=== PATIENT | female | born 1935 | race Caucasian/White ===

== ENCOUNTER → 2019-02-26 | Outpatient (CLI) | payer MEDICARE, OTHER ==
--- NOTE | 2019-02-27 08:53 | XCELERA REPORT ---
[address] [facility] [facility] [address] Lower Extremity Venous Evaluation Procedure: Color flow and duplex imaging of the veins of the left lower extremity as well as the right Common Femoral vein. Right Sided Venous Evaluation The right common femoral vein is fully compressible. Spontaneous and phasic flow is present in the right common femoral vein. Left Sided Venous Evaluation Normal vessel filling wall to wall, compression and augmentation as well as Colour flow down to the infrageniculate veins. Interpretation Summary No duplex evidence of DVT or obstruction in the left lower extremity nor in the right Common Femoral vein. Name: BRET GORDILLO Age: 83 yrs Gender: Female : 1935 Patient Status: Outpatient Patient Location: Study Date: 02/26/2019 04:13 PM Reason For Study: LLE PAIN Ordering Physician: SID BURGESS Performed By: Claire Hernandez : SID BURGESS > Kamar De La Cruz
== END ==
LOC: SP 15:43
PROVIDERS: ATTEND Family Medicine
DX: R60.0 Localized edema (principal)
CPT/HCPCS: 93971

== ENCOUNTER 2019-05-16 14:56 | Emergency (ER) | payer MEDICARE ==
[2019-05-16] MEDS ORDERED: ONDANSETRON HCL INJ/PF 4 MG/2 ML SDV IV ONE (15:21)
--- NOTE | 2019-05-16 15:44 | ER Document Report ---
ED GI/ - General Stated Complaint: ABDOMINAL PAIN Time Seen by Provider: 05/16/19 15:04 Primary Care Provider: SID BURGESS MD [Primary Care Provider] - Follow up in 3-5 days Notes: Patient is an 83-year-old female who presents emergency department with a chief complaint of abdominal pain and chest pain. She is currently a resident [facility]. For the past few days she has had some diarrhea. She states that her abdominal pain is mainly in her lower abdomen. Patient has a history of an open paraesophageal hernia repair and gastropexy that was done on May 02. She had fallen on April 13 and sustained some sternal fractures. She was at [facility] all of this. Just released this past Tuesday. Patient states that she has had trouble sleeping and she has not been eating well because she does not like the food at [facility]. She is still on a pured diet but the facility decreased her diet to a liquid diet. Her son is at bedside and also reports the patient had a urinary tract infection at that time. Past medical history includes hypertension, type 2 diabetes, atrial fibrillation, arthritis, and osteoporosis. Patient states that she has had some nausea and diarrhea. TRAVEL OUTSIDE OF THE [place] IN LAST 30 DAYS: No - Related Data Allergies/Adverse Reactions: Sulfa (Sulfonamide Antibiotics) Allergy (Verified 11/14/11 10:28) Past Medical History - General Information source: Patient, Relative - Social History Smoking Status: Never Smoker Family History: Reviewed & Not Pertinent - Past Medical History Cardiac Medical History: Reports: Hx Hypercholesterolemia, Hx Hypertension Past Surgical History: Reports: Hx Tubal Ligation Review of Systems - Review of Systems Notes: REVIEW OF SYSTEMS: CONSTITUTIONAL : Denies recent illness. Denies recent unintentional weight loss. Denies fever, chills, or sweats. EENT: Denies eye, ear, throat, or mouth pain, discharge, or symptoms. Denies nasal or sinus congestion. CARDIOVASCULAR: See HPI. RESPIRATORY: Denies shortness of breath, cough, congestion, difficulty breathing, or wheezing. GASTROINTESTINAL: See HPI. GENITOURINARY: Denies difficulty urinating, burning, blood in urine, urgency or frequency. MUSCULOSKELETAL: Denies neck and back pain. Denies joint pain or swelling. SKIN: Denies rash, itchiness, or lesions HEMATOLOGIC : Denies easy bruising or bleeding. LYMPHATIC: Denies swollen, painful, enlarged glands. NEUROLOGICAL: Denies no numbness or tingling denies weakness. Denies headache. Denies altered mental status. Denies alteration in speech. PSYCHIATRIC: Denies stress, anxiety, alteration in sleep patterns, or depression. All other systems reviewed and negative. Physical Exam - Vital signs Vitals: Resp Pulse Ox 22 H 94 05/16/19 15:05 05/16/19 15:05 - Notes Notes: PHYSICAL EXAMINATION: GENERAL: Appears stated age, no acute distress. HEAD: Normocephalic, atraumatic. EYES: PERRL, conjunctiva normal, all extraocular movements intact, sclera nonicteric ENT: Dry mucous membranes. NECK: Supple, no noticeable swelling, redness, rash. Normal range of motion. LUNGS: Equal breath sounds bilaterally and clear to auscultation. No wheezes rales or rhonchi. CARDIOVASCULAR: S1-S2, regular rate, regular rhythm. Radial pulses 2+, normal. ABDOMEN: Normoactive bowel sounds. Soft, mildly tender mid lower abdomen, no guarding, no rebound tenderness, and no masses palpated. EXTREMITIES: Normal strength for self (patient bed bound) and range of motion, 1+ edema. No cyanosis. NEUROLOGICAL: Moves all extremities upon command. Strength 5/5 in all extremities. PSYCH: Normal mood, normal affect. SKIN: Warm, dry. No rash, lesions, ulcerations noted. Normal skin turgor. Course - Re-evaluation Re-evalutation: 05/16/19 16:52 Patient's potassium is 6.0 with a sodium of 117. I discussed this with Dr. Macy Oviedo and patient will be started on IV fluids and labs will be redrawn. Hematology shows white blood cell count of 10.6. Awaiting urinalysis. Accord ing to the nurse, the patient keeps attempting her bladder and does not have time to refill when she caths her. 05/16/19 19:45 Patient's urinalysis is unremarkable. No urinary tract infection noted. CT results show esophagitis, which is consistent with her not being on a PPI at this time. CT also shows pleural effusions. I have called [facility] to relay the CT results to the thoracic surgeon. Awaiting callback. 05/16/19 20:15 I spoke with thoracic surgery from [facility]. I relayed the CT results to him and he is recommending Pepcid and Carafate for the patient. I also discussed lab results. He also states that from a surgical standpoint, there is nothing for him to do at this time. He is offering the patient to be [facility] under the hospitalist service. I will speak with the family in regards to this issue. 05/16/19 20:45 Patient redraw of her chemistries hemolyzed. I have a very low suspicion of the patient being hyperkalemic due to her diarrhea. Her potassium should actually be lower than 6.0 due to her diarrhea. I had a very lengthy conversation with the patient and her son. They have a few requests. They would like her to be reevaluated by speech therapy to evaluate her swallowing and see if they can advance her diet. I put this requested on her discharge paperwork. I also asked whether or not they would like to be transferred to [facility] and they have decided to give rehab a try. They are also requesting something for her to sleep and for them to be able to bring her food that complies with her current diet, as the patient does not like the food at [facility]. I did that paperwork. Follow-up precautions were given. Verbal discharge instructions were given to the patient. They verbalized understanding. They are stable for discharge. - Vital Signs Vital signs: Temp Pulse Resp BP Pulse Ox 97.6 F 18 130/72 H 100 05/16/19 19:01 05/16/19 19:01 05/16/19 19:01 05/16/19 19:01 - Laboratory Result Diagrams: 05/16/19 15:14 05/16/19 15:14 Laboratory results interpreted by me: 05/16/19 05/16/19 05/16/19 15:14 15:14 18:53 WBC 10.6 H Hct 35.9 L RDW 14.2 H Plt Count 547 H Seg Neuts % (Manual) 84 H Lymphocytes % (Manual) 4 L Metamyelocytes % 1 H Abs Neuts (Manual) 9.0 H Abs Lymphs (Manual) 0.4 L Sodium 117.6 L* Potassium 6.0 H* Chloride 82 L Creatinine 0.39 L AST 55 H Creatine Kinase 22 L Urine Ketones 20 H Discharge - Discharge Clinical Impression: Diarrhea Qualifiers: Diarrhea type: unspecified type Qualified Code(s): R19.7 - Diarrhea, unspecified Abdominal pain Qualifiers: Abdominal location: lower abdomen, unspecified Qualified Code(s): R10.30 - Lowe r abdominal pain, unspecified Condition: Stable Disposition: HOME-SNF (ED ONLY) Additional Instructions: You were seen today in the emergency department for abdominal pain, chest pain, and diarrhea. Your abdominal pain is most likely due to your diarrhea. Your chest pain may be due to esophagitis. You are being started on Pepcid and Carafate. Please have them administer this as directed. You are also being sent home with Happy Hiney cream, a medication to place on buttocks between diaper changes. Your please follow-up with your primary care provider in regards to this visit. PROVIDER, PLEASE REFER PATIENT TO SPEECH THERAPY FOR SWALLOW EVALUATION TO ADVANCE DIET STAFF, PLEASE ALLOW FAMILY TO BRING IN OUTSIDE SOFT FOODS THAT COMPLY WITH HER CURRENT DIET Prescriptions: Melatonin 10 mg PO QHS #30 tab.rapdis Sucralfate [Carafate] 1 gm PO ACHS #120 oral.susp Miscellaneous Medication [Happy Hiney Cream] 1 applic TOP ASDIR PRN #30 gm PRN Reason: Famotidine [Pepcid 20 mg Tablet] 40 mg PO BID #120 tablet Referrals: SID BURGESS MD [Primary Care Provider] - Follow up in 3-5 days
[2019-05-16 16:33] LABS: ALBUMIN 3.7 g/dL (3.5-5.0); ALKALINE PHOSPHATASE 100 U/L (38-126); ANION GAP 10 (5-19); ASPARTATE AMINO TRANSFERASE 55 U/L (14-36); BILIRUBIN,DIRECT 0.3 mg/dL (0.0-0.4); BILIRUBIN,TOTAL 0.7 mg/dL (0.2-1.3); BLOOD UREA NITROGEN 9 mg/dL (7-20); CALCIUM 9.5 mg/dL (8.4-10.2); CARBON DIOXIDE 26 mmol/L (22-30); CHLORIDE 82 mmol/L (98-107); CREATINE KINASE 22 U/L (30-135); GLUCOSE 110 mg/dL (75-110); HEMATOCRIT 35.9 % (36.0-47.0); HEMOGLOBIN 12.1 g/dL (12.0-15.5); MEAN CORPUSCULAR HEMOGLOBIN 31.3 pg (27.0-33.4); MEAN CORPUSCULAR HGB CONC 33.6 g/dL (32.0-36.0); MEAN CORPUSCULAR VOLUME 93 fl (80-97); PLATELET COUNT 547 10^3/uL (150-450); RED BLOOD COUNT 3.85 10^6/uL (3.72-5.28); RED CELL DISTRIBUTION WIDTH 14.2 % (11.5-14.0); TOTAL PROTEIN 7.2 g/dL (6.3-8.2); WHITE BLOOD COUNT 10.6 10^3/uL (4.0-10.5)
[2019-05-16 16:44] LABS: CREATINE KINASE MB 0.64 ng/mL (<4.55)
[2019-05-16 16:45] LABS: ABSOLUTE LYMPHOCYTES# (MANUAL) 0.4 10^3/uL (0.5-4.7); ABSOLUTE MONOCYTES # (MANUAL) 0.7 10^3/uL (0.1-1.4); BASOPHILS % (MANUAL) 0 % (0-2); EOSINOPHILS % (MANUAL) 4 % (0-6); LYMPHOCYTES % (MANUAL) 4 % (13-45); METAMYELOCYTES % (MANUAL) 1 % (0); MONOCYTES % (MANUAL) 7 % (3-13); SEGMENTED NEUTROPHILS % (MAN) 84 % (42-78); TOTAL CELLS COUNTED 100
[2019-05-16 16:46] LABS: TROPONIN I < 0.012 ng/mL
[2019-05-16 16:47] LABS: ANISOCYTOSIS SLIGHT; OVALOCYTES SLIGHT; PLATELET COMMENT ADEQUATE; POIKILOCYTOSIS SLIGHT; POLYCHROMASIA SLIGHT
[2019-05-16] MEDS ORDERED: NORMAL SALINE 1000 ML 1,000 ML IV ONE (16:49)
--- NOTE | 2019-05-16 17:54 | RADIOLOGY REPORT (SQ) ---
EXAM DESCRIPTION: CT CHEST WITH COMPLETED DATE/TIME: 05/16/2019 5:19 pm REASON FOR STUDY: chest/abd pain COMPARISON: None. TECHNIQUE: CT scan of the chest performed using helical scanning technique with dynamic intravenous contrast injection. Images reviewed with lung, soft tissue and bone windows. Reconstructed coronal and sagittal MPR and MIP images reviewed. All images stored on PACS. All CT scanners at this facility use dose modulation, iterative reconstruction, and/or weight based d osing when appropriate to reduce radiation dose to as low as reasonably achievable (ALARA). [facility]: Dose Right [facility]: CareDose [facility]: Dose Right [facility]: Teradose 4D [facility]: [employer] CONTRAST TYPE AND DOSE: Contrast/concentration: Isovue 350.00 mg/ml; Total Contrast Delivered: 88.9 ml; Total Saline Delivered: 22.0 ml RENAL FUNCTION: GFR > 60. RADIATION DOSE: CT Rad equipment meets quality standard of care and radiation dose reduction techniq ues were employed. CTDIvol: 16.8 - 20.6 mGy. DLP: 2060 mGy-cm. . LIMITATIONS: None. FINDINGS: LUNGS AND PLEURA: The trachea and main bronchi are patent. There are moderate bilateral p leural effusions associated with compressive atelectasis of the lower lobes ; there is no pleural nod ularity or enhancement. There is no alveolar consolidation or ground-glass opacification. HILAR AND MEDIASTINAL STRUCTURES: There is no enlarged mediastinal adenopathy. HEART AND VASCULAR STRUCTURES: There is a standard 3 vessel arch. The thoracic aorta is normal in ca liber. There is no thoracic aortic dissection. There is [id number] atherosclerotic calcificat ion of the coronary arteries; there is no pericardial effusion or cardiomegaly. HARDWARE: Surgical clips near the gastroesophageal junction. UPPER ABDOMEN: See separate report of the CT of the abdomen. THYROID AND OTHER SOFT TISSUES: No masses or adenopathy. BONES: Compression fracture deformities of the T2, T3, T5, T8 and T12 vertebral bodies; there is evid ence of prior vertebral augmentation at the T12 level. OTHER: Circumferential mural thickening of the distal thoracic esophagus. IMPRESSION: 1. Moderate bilateral pleural effusions associated with compressive atelectasis of the l ower lobes. 2. Age indeterminate chronic compression deformities of several thoracic vertebral bodies. 3. Circumferential mural thickening of the distal thoracic esophagus - the finding is nonspecific an d represent esophagitis. TECHNICAL DOCUMENTATION: JOB ID: [id number] Quality ID # [id number]: Final reports with documentation of one or more dose reduction techniques (e.g., Au tomated exposure control, adjustment of the mA and/or kV according to patient size, use of iterative reconstruction technique) 2010 [employer]- All Rights Reserved Reading location - IP/workstation name: [email or web address]
--- NOTE | 2019-05-16 18:03 | RADIOLOGY REPORT (SQ) ---
EXAM DESCRIPTION: CT ABD/PELVIS WITH IV ONLY COMPLETED DATE/TIME: 05/16/2019 5:19 pm REASON FOR STUDY: chest/abd pain COMPARISON: None. TECHNIQUE: CT scan of the abdomen and pelvis performed using helical scanning technique with dynamic intravenous contrast injection. No oral contrast. Images reviewed with lung, soft tissue, and bone windows. Reconstructed coronal and sagittal MPR images reviewed. Delayed images for evaluation of the urinary system also acquired. All images stored on PACS. All CT scanners at this facility use dose modulation, iterative reconstruction, and/or weight based d osing when appropriate to reduce radiation dose to as low as reasonably achievable (ALARA). [facility]: Dose Right [facility]: CareDose [facility]: Dose Right [facility]: Teradose 4D [facility]: [employer] CONTRAST TYPE AND DOSE: Refer to the CT Chest report. RENAL FUNCTION: GFR > 60. LIMITATIONS: None. FINDINGS: LOWER CHEST: See separate report of the CT of the chest. LIVER: The liver morphology is non cirrhotic. There is no hepatic mass. SPLEEN: The spleen is normal in size. PANCREAS: There is no abnormality of the pancreas. GALLBLADDER: No abnormality that is apparent on CT. ADRENAL GLANDS: No mass or focal asymmetry. RIGHT KIDNEY AND URETER: No solid masses. No calcifications. No hydronephrosis or hydroureter. LEFT KIDNEY AND URETER: No solid masses. No calcifications. No hydronephrosis or hydroureter. AORTA AND VESSELS: No aneurysm or dissection of the abdominal aorta. The abdominopelvic vasculature is patent. RETROPERITONEUM: No retroperitoneal adenopathy, mass or hemorrhage. BOWEL AND PERITONEAL CAVITY: Surgical clips near the gastroesophageal junction. There is no evidence of bowel obstruction, bowel wall thickening, or pericolonic/ perienteric inflammation. APPENDIX: Normal. PELVIS: Bilateral inguinal hernias that contain nonobstructed loops of bowel. The urinary bladder is distended. There is focal area of wall thickening at the left posterior-lateral aspect of the urina ry bladder that measures approximately 3.4 cm in craniocaudal diameter and 11 mm and AP diameter. Th e uterus is atrophic. There is no pelvic adenopathy or free fluid. ABDOMINAL WALL: As above. BONES: Chronic compression deformities of the L3 and L4 vertebral bodies. OTHER: No other finding. IMPRESSION: 1. Focal area of wall thickening at the left posterolateral aspect of the uterine bladde r - correlation with ultrasound is recommended to exclude a mass. 2. Distended urinary bladder - correlate with clinical findings to exclude bladder outlet obstructio n. TECHNICAL DOCUMENTATION: JOB ID: [id number] Quality ID # [id number]: Final reports with documentation of one or more dose reduction techniques (e.g., Au tomated exposure control, adjustment of the mA and/or kV according to patient size, use of iterative reconstruction technique) 2010 [employer]- All Rights Reserved Reading location - IP/workstation name: [email or web address]
[2019-05-16 19:07] LABS: AMORPHOUS SEDIMENT,URINE TRACE /HPF; APPEARANCE,URINE CLEAR; BILIRUBIN,URINE NEGATIVE (NEGATIVE); COLOR,URINE STRAW; GLUCOSE, URINE NEGATIVE (NEGATIVE); KETONES,URINE 20 mg/dL (NEGATIVE); LEUKOCYTE ESTERASE,URINE NEGATIVE (NEGATIVE); NITRITE,URINE NEGATIVE (NEGATIVE); PROTEIN,URINE NEGATIVE (NEGATIVE); URINE SPECIFIC GRAVITY 1.018; UROBILINOGEN,URINE NEGATIVE mg/dL (<2.0)
--- NOTE | 2019-05-16 19:53 | EKG REPORT ---
SEVERITY:- ABNORMAL ECG - SINUS RHYTHM ABNRM R PROG, CONSIDER ASMI OR LEAD PLACEMENT : Confirmed by: Eloisa Stoddard MD 16-May-2019 19:51:38
[2019-05-16] MEDS ORDERED: FAMOTIDINE 20 MG TABLET PO ONE (19:57)
[2019-05-16] MEDS ORDERED: MELATONIN 5 MG TABLET PO ONE (20:44)
[2019-05-17 03:04] VITALS: BP 125/74
--- NOTE | 2019-05-17 21:45 | EKG REPORT ---
SEVERITY:- NORMAL ECG - SINUS RHYTHM : Confirmed by: Eloisa Stoddard MD 17-May-2019 21:44:37
== END 2019-05-17 03:04 ==
LOC: ER 14:56
DX: R10.30 Lower abdominal pain, unspecified (principal); R19.7 Diarrhea, unspecified; K20.9 Esophagitis, unspecified; J90 Pleural effusion, not elsewhere classified; R07.9 Chest pain, unspecified; R11.0 Nausea; R60.9 Edema, unspecified; I10 Essential (primary) hypertension; E11.9 Type 2 diabetes mellitus without complications; Z98.890 Other specified postprocedural states; Z87.440 Personal history of urinary (tract) infections; Z88.2 Allergy status to sulfonamides; Z74.01 Bed confinement status
CPT/HCPCS: 93005; 36415; 82553; 82550; 83690; 85025; 80053; 81001; 84484; 71260; 74177; 93010; A9270 ×2; J2405; J7030; J3490

== ENCOUNTER 2019-05-20 12:44 | Inpatient (IN) | payer MEDICARE ==
[2019-05-20] MEDS ORDERED: ONDANSETRON HCL INJ/PF 4 MG/2 ML SDV IV ONE (13:27)
[2019-05-20] MEDS ORDERED: NORMAL SALINE 1000 ML 1,000 ML IV ONE (13:27)
--- NOTE | 2019-05-20 13:35 | ER Document Report ---
ED GI/ - General Chief Complaint: High Blood Pressure Stated Complaint: NAUSEA Time Seen by Provider: 05/20/19 13:05 Primary Care Provider: SID BURGESS MD [Primary Care Provider] - Follow up as needed TRAVEL OUTSIDE OF THE [place] IN LAST 30 DAYS: No - HPI Notes: 05/20/19 13:31 Patient is a 83-year-old female that presents to the emergency department for chief complaint of nausea. [facility] from [facility] She was discharged to [facility] from [facility] just over a week ago. Patient had a recent open paraesophageal hernia repair and gastropexy after sustaining a mechanical fall with sternal fractures. She is currently on a pured diet. Patient reports ongoing gagging and dry heaving. She also reports lower abdominal tenderness. Patient was seen here 4 days ago and states she has no new symptoms today but is not feeling any improvement. She denies difficulty urinating, fevers, chest pain and shortness of breath Past Medical History: Reviewed in chart Past Surgical History: paraesophageal hernia repair and gastropexy Social History: Lives at [facility] facility. No alcohol or tobacco use Family History: Reviewed and noncontributory for presenting illness Allergies: Reviewed, see documented allergy list. REVIEW OF SYSTEMS: CONSTITUTIONAL : No fever No chills No diaphoresis Fatigue EENT: No vision changes No congestion No sore throat CARDIOVASCULAR: No chest pain No palpitations RESPIRATORY: No shortness of breath No cough No difficulty breathing GASTROINTESTINAL: abdominal pain nausea vomiting No diarrhea GENITOURINARY: No dysuria No hematuria No difficulty urinating MUSCULOSKELETAL: No back pain No leg pain No arm pain SKIN: No rashes No lesions LYMPHATIC: No swollen, enlarged glands. NEUROLOGICAL: No lightheadedness No headache No weakness No paresthesias PSYCHIATRIC: No anxiety No depression PHYSICAL EXAMINATION: Vital signs reviewed, nursing noted reviewed. GENERAL: ill-appearing, well-nourished and in no acute distress. HEAD: Atraumatic, normocephalic. EYES: Eyes appear normal, extraocular movements intact, sclera anicteric, conjunctiva are normal. ENT: nares patent, oropharynx clear without exudates. Mildly dry mucous membranes. NECK: Normal range of motion, supple without lymphadenopathy LUNGS: Breath sounds clear to auscultation bilaterally and equal. No wheezes rales or rhonchi. HEART: Regular rate and rhythm without murmurs ABDOMEN: Soft, mildly tender to palpation diffusely with most tenderness being in the suprapubic region. No rebound, guarding, or rigidity. EXTREMITIES: Nontender, good range of motion, trace pretibial edema bilaterally and symmetric. NEUROLOGICAL: No focal neurological deficits. Moves all extremities spontaneously Motor and sensory grossly intact on exam. PSYCH: Normal mood, normal affect. SKIN: Warm, Dry, normal turgor. Multiple small surgical incision with clean dry Steri-Strips in place, no active bleeding or drainage or surrounding erythema. - Related Data Allergies/Adverse Reactions: Sulfa (Sulfonamide Antibiotics) Allergy (Verified 11/14/11 10:28) Past Medical History - Social History Smoking Status: Unknown if Ever Smoked Family History: Reviewed & Not Pertinent Patient has suicidal ideation: No Patient has homicidal ideation: No - Past Medical History Cardiac Medical History: Reports: Hx Hypercholesterolemia, Hx Hypertension Past Surgical History: Reports: Hx Abdominal Surgery, Hx Tubal Ligation Physical Exam - Vital signs Vitals: Temp 97.6 F 05/20/19 13:13 Course - Re-evaluation Re-evalutation: 05/20/19 13:34 Vitals reviewed. Nursing notes reviewed. Patient started on IV fluids and antiemetics. She has not had active vomiting in the emergency room. Chart revi ew shows 4 days ago she had CT scans that showed esophagitis. Patient was reportedly started on Carafate and Pepcid. She also had a questionable hyponatremia and hyperkalemia which was thought to be lab error. Repeat lab work will be performed today. 05/20/19 16:48 Patient's lab work today shows a sodium of 111 and a potassium of 5.5. Patient is not having any hyper acute T waves or QT prolongation on EKG. she has received 1 L of normal saline to initiate treatment on her hyponatremia. Seiz ure precautions have been ordered. Patient has remained alert and hemodynamically stable. She will be admitted to the ICU for close monitoring of her hyponatremia. Care discussed with the admitting national accounts sales Dr. Jones Laboratory 05/20/19 05/20/19 05/20/19 14:00 14:00 14:00 WBC 9.9 RBC 3.83 Hgb 12.1 Hct 35.1 L MCV 92 MCH 31.6 MCHC 34.5 RDW 13.9 Plt Count 568 H Lymph % (Auto) Not Reportable [place] % (Auto) Not Reportable Eos % (Auto) Not Reportable Baso % (Auto) Not Reportable Absolute Neuts (auto) Not Reportable Absolute Lymphs (auto) Not Reportable Absolute Monos (auto) Not Reportable Absolute Eos (auto) Not Reportable Absolute Basos (auto) Not Reportable Total Counted 100 Seg Neutrophils % Not Reportable Seg Neuts % (Manual) 85 H Band Neutrophils % 1 L Lymphocytes % (Manual) 3 L Monocytes % (Manual) 11 Eosinophils % (Manual) 0 Basophils % (Manual) 0 Abs Neuts (Manual) 8.5 H Abs Lymphs (Manual) 0.3 L Abs Monocytes (Manual) 1.1 Absolute Eos (Manual) 0.0 Abs Basophils (Manual) 0.0 Toxic Granulation SLIGHT Platelet Comment INCREASED Anisocytosis SLIGHT Sodium Cancelled Potassium Cancelled Chloride Cancelled Carbon Dioxide Cancelled Anion Gap Cancelled BUN Cancelled Creatinine Cancelled Est GFR ( Amer) Cancelled Est GFR (Non-Af Amer) Cancelled Est GFR (MDRD) Non-Af Cancelled Glucose Cancelled Calcium Cancelled Total Bilirubin Cancelled Direct Bilirubin Cancelled Neonat Total Bilirubin Cancelled Neonat Direct Bilirubin Cancelled Neonat Indirect Bili Cancelled AST Cancelled ALT Cancelled Alkaline Phosphatase Cancelled Troponin I Cancelled Total Protein Cancelled Albumin Cancelled Lipase Cancelled EGFR Cancelled 05/20/19 05/20/19 15:30 15:30 WBC RBC Hgb Hct MCV MCH MCHC RDW Plt Count Lymph % (Auto) [place] % (Auto) Eos % (Auto) Baso % (Auto) Absolute Neuts (auto) Absolute Lymphs (auto) Absolute Monos (auto) Absolute Eos (auto) Absolute Basos (auto) Total Counted Seg Neutrophils % Seg Neuts % (Manual) Band Neutrophils % Lymphocytes % (Manual) Monocytes % (Manual) Eosinophils % (Manual) Basophils % (Manual) Abs Neuts (Manual) Abs Lymphs (Manual) Abs Monocytes (Manual) Absolute Eos (Manual) Abs Basophils (Manual) Toxic Granulation Platelet Comment Anisocytosis Sodium 111.4 L* Potassium 5.5 H Chloride 78 L Carbon Dioxide 22 Anion Gap 11 BUN 7 Creatinine 0.38 L Est GFR ( Amer) > 60 Est GFR (Non-Af Amer) Est GFR (MDRD) Non-Af > 60 Glucose 96 Calcium 8.4 Total Bilirubin 0.7 Direct Bilirubin 0.2 Neonat Total Bilirubin Not Reportable Neonat Direct Bilirubin Not Reportable Neonat Indirect Bili Not Reportable AST 37 H ALT 55 Alkaline Phosphatase 79 Troponin I < 0.012 Total Protein 6.2 L Albumin 3.3 L Lipase 131.4 EGFR Chest X-Ray 05/20/19 13:10 IMPRESSION: MILD CARDIOMEGALY. POSSIBLE SMALL PLEURAL EFFUSIONS. - Vital Signs Vital signs: Temp Pulse Resp BP Pulse Ox 97.6 F 05/20/19 13:13 - Laboratory Result Diagrams: 05/20/19 14:00 05/20/19 15:30 Laboratory results interpreted by me: 05/20/19 05/20/19 14:00 15:30 Hct 35.1 L Plt Count 568 H Seg Neuts % (Manual) 85 H Band Neutrophils % 1 L Lymphocytes % (Manual) 3 L Abs Neuts (Manual) 8.5 H Abs Lymphs (Manual) 0.3 L Sodium 111.4 L* Potassium 5.5 H Chloride 78 L Creatinine 0.38 L AST 37 H Total Protein 6.2 L Albumin 3.3 L - EKG Interpretation by Me Additional EKG results interpreted by me: 05/20/19 14:19 Interpreted by myself 1411: Normal sinus rhythm, rate 81, normal axis, no STEMI, no ectopy Critical Care Note - Critical Care Note Total time excluding time spent on procedures (mins): 36 Comments: Critical care time 36 exclusive from separate billable procedures for a patient requiring complex medical decision making, and high potential for clinical deterioration. Time spent obtaining history from patient or surrogate, discussions with consultants, development of treatment plan with patient or surrogate, evaluation of patient's response to treatment, examination of patient, ordering and performing treatments and interventions, ordering and review of laboratory studies, re-evaluation of patient's condition, ordering and review of radiographic studies and review of old charts Discharge - Discharge Clinical Impression: Hyponatremia, Hyperkalemia, Nausea Fatigue Qualifiers: Fatigue type: unspecified Qualified Code(s): R53.83 - Other fatigue Condition: Stable Disposition: ADMITTED INPATIENT Admitting Provider: Dr. Jones Unit Admitted: ICU Referrals: SID BURGESS MD [Primary Care Provider] - Follow up as needed
--- NOTE | 2019-05-20 13:44 | RADIOLOGY REPORT (SQ) ---
EXAM DESCRIPTION: CHEST SINGLE VIEW COMPLETED DATE/TIME: 05/20/2019 1:36 pm REASON FOR STUDY: nausea COMPARISON: None. EXAM PARAMETERS: NUMBER OF VIEWS: One view. TECHNIQUE: Single frontal radiographic view of the chest acquired. RADIATION DOSE: NA LIMITATIONS: None. FINDINGS: LUNGS AND PLEURA: No opacities, masses or pneumothorax. Possible small pleural effusions. . MEDIASTINUM AND HILAR STRUCTURES: No masses. Contour normal. HEART AND VASCULAR STRUCTURES: Mild cardiomegaly. BONES: No acute findings. HARDWARE: None in the chest. OTHER: No other significant finding. IMPRESSION: MILD CARDIOMEGALY. POSSIBLE SMALL PLEURAL EFFUSIONS. TECHNICAL DOCUMENTATION: JOB ID: [id number] [employer]- All Rights Reserved Reading location - IP/workstation name: [email or web address]
[2019-05-20 14:19] LABS: HEMATOCRIT 35.1 % (36.0-47.0); HEMOGLOBIN 12.1 g/dL (12.0-15.5); MEAN CORPUSCULAR HEMOGLOBIN 31.6 pg (27.0-33.4); MEAN CORPUSCULAR HGB CONC 34.5 g/dL (32.0-36.0); MEAN CORPUSCULAR VOLUME 92 fl (80-97); PLATELET COUNT 568 10^3/uL (150-450); RED BLOOD COUNT 3.83 10^6/uL (3.72-5.28); RED CELL DISTRIBUTION WIDTH 13.9 % (11.5-14.0); WHITE BLOOD COUNT 9.9 10^3/uL (4.0-10.5)
[2019-05-20 15:05] LABS: ABSOLUTE LYMPHOCYTES# (MANUAL) 0.3 10^3/uL (0.5-4.7); ABSOLUTE MONOCYTES # (MANUAL) 1.1 10^3/uL (0.1-1.4); BAND NEUTROPHILS % (MANUAL) 1 % (3-5); BASOPHILS % (MANUAL) 0 % (0-2); EOSINOPHILS % (MANUAL) 0 % (0-6); LYMPHOCYTES % (MANUAL) 3 % (13-45); MONOCYTES % (MANUAL) 11 % (3-13); SEGMENTED NEUTROPHILS % (MAN) 85 % (42-78); TOTAL CELLS COUNTED 100; TOXIC GRANULATION SLIGHT
[2019-05-20 15:06] LABS: ANISOCYTOSIS SLIGHT; PLATELET COMMENT INCREASED
[2019-05-20 16:07] LABS: ALBUMIN 3.3 g/dL (3.5-5.0); ALKALINE PHOSPHATASE 79 U/L (38-126); ANION GAP 11 (5-19); ASPARTATE AMINO TRANSFERASE 37 U/L (14-36); BILIRUBIN,DIRECT 0.2 mg/dL (0.0-0.4); BILIRUBIN,TOTAL 0.7 mg/dL (0.2-1.3); BLOOD UREA NITROGEN 7 mg/dL (7-20); CALCIUM 8.4 mg/dL (8.4-10.2); CARBON DIOXIDE 22 mmol/L (22-30); CHLORIDE 78 mmol/L (98-107); GLUCOSE 96 mg/dL (75-110); POTASSIUM 5.5 mmol/L (3.6-5.0); TOTAL PROTEIN 6.2 g/dL (6.3-8.2)
[2019-05-20 16:56] LABS: AMORPHOUS SEDIMENT,URINE TRACE /HPF; APPEARANCE,URINE SLIGHTLY-CLOUDY; BILIRUBIN,URINE NEGATIVE (NEGATIVE); COLOR,URINE YELLOW; GLUCOSE, URINE NEGATIVE (NEGATIVE); KETONES,URINE 20 mg/dL (NEGATIVE); LEUKOCYTE ESTERASE,URINE NEGATIVE (NEGATIVE); NITRITE,URINE POSITIVE (NEGATIVE); PROTEIN,URINE NEGATIVE (NEGATIVE); URINE SPECIFIC GRAVITY 1.014; UROBILINOGEN,URINE NEGATIVE mg/dL (<2.0)
[2019-05-20] MEDS ORDERED: ACETAMINOPHEN 325 MG TABLET PO PRN (17:04)
[2019-05-20 18:06] LABS: URINE CREATININE 36.7 mg/dL (15-278)
[2019-05-20] MEDS ORDERED: HYDRALAZINE HCL INJ/PF 20 MG/1 ML SDV IV PRN (18:39)
--- NOTE | 2019-05-20 18:39 | CRITICAL CARE ADMISSION REPORT ---
HPI Date:: 05/20/19 Time:: 17:14 Reason for ICU Reason:: hyponatremia HPI: Pt is an 83 yo woman resident of a SNF who had a prolonged stay at [facility] for a paraesophageal hernia repair and gastropexy. SHe presented to the ED several days ago c/o nausea, vomiting, decreased po intake due to poor appetite. She was found to have a sodium of 117 at that time. She was given IVF and discharged. She returns today c/o nausea, weakness, and malaise. In the ED she was found to have a sodium of 111. She was given 1 liter of NS. Past Medical History Cardiac Medical History: Reports: Atrial Fibrillation, Hyperlipidema, Hypertension Endocrine Medical History: Reports: Diabetes Mellitus Type 2, Other - osteoporo sis Past Surgical History Past Surgical History: Reports: Tubal Ligation, Other - paraesophageal hernia repair and gastropexy Social/Family History - Social History Lives with: [place] Smoking Status: Unknown if Ever Smoked - Medication/Allergies Home Medications: Alendronate Sodium [Fosamax] 70 mg PO RTTUES 11/14/11 Calcium/Magnesium/Vit D3 [Calcium 500 Mg Tablet] 2 each PO DAILY 11/14/11 Cetirizine HCl [Zyrtec] 10 mg PO DAILY 11/14/11 Cholecalciferol (Vitamin D3) [Vitamin D] 1,000 unit PO DAILY 11/14/11 Garlic 3 each PO DAILY 11/14/11 Hydromorphone HCl [Dilaudid 2 Mg Tablet] 2 mg PO PRN PRN 11/14/11 Losartan Potassium [Cozaar 50 Mg Tablet] 50 mg PO DAILY 11/14/11 Metoprolol Succinate [Toprol-Xl 25 Mg Tab.Sr] 25 mg PO BID 11/14/11 Multivitamins W-Minerals/Lut [Centrum Silver Tablet] 1 each PO DAILY 11/14/11 Omeprazole [Prilosec] 40 mg PO DAILY 11/14/11 Famotidine [Pepcid 20 mg Tablet] 40 mg PO BID #120 tablet 05/16/19 Melatonin 10 mg PO QHS #30 tab.rapdis 05/16/19 Miscellaneous Medication [Happy Hiney Cream] 1 applic TOP ASDIR PRN #30 gm 05/16/19 Sucralfate [Carafate] 1 gm PO ACHS #120 oral.susp 05/16/19 Allergies/Adverse Reactions: Sulfa (Sulfonamide Antibiotics) Allergy (Verified 11/14/11 10:28) Review of Systems Review of Systems: per HPI Physical Exam Vital Signs: Temp Pulse Resp BP Pulse Ox 97.6 F 05/20/19 13:13 Intake & Output 05/19/19 05/20/19 05/21/19 06:59 06:59 06:59 Intake Total 1000 Balance 1000 Weight 77.111 kg Weight/Height Weight 77.111 kg Height 5 ft General appearance: PRESENT: no acute distress, well-developed, well-nourished Head exam: PRESENT: atraumatic, normocephalic Respiratory exam: PRESENT: clear to auscultation ga, unlabored Cardiovascular exam: PRESENT: RRR GI/Abdominal exam: PRESENT: soft Laboratory/Radiographs Laboratory Results: 05/20/19 14:00 05/20/19 15:30 05/20/19 05/20/19 05/20/19 14:00 14:00 14:32 WBC 9.9 RBC 3.83 Hgb 12.1 Hct 35.1 L MCV 92 MCH 31.6 MCHC 34.5 RDW 13.9 Plt Count 568 H Seg Neutrophils % Not Reportable Sodium Cancelled Potassium Cancelled Chloride Cancelled Carbon Dioxide Cancelled Anion Gap Cancelled BUN Cancelled Creatinine Cancelled Est GFR ( Amer) Cancelled Est GFR (Non-Af Amer) Cancelled Glucose Cancelled Calcium Cancelled Total Bilirubin Cancelled AST Cancelled Alkaline Phosphatase Cancelled Total Protein Cancelled Albumin Cancelled Lipase Cancelled Urine Color YELLOW Urine Appearance SLIGHTLY-CLOUDY Urine pH 7.0 Ur Specific [place] 1.014 Urine Protein NEGATIVE Urine Glucose (UA) NEGATIVE Urine Ketones 20 H Urine Blood NEGATIVE Urine Nitrite POSITIVE H Ur Leukocyte Esterase NEGATIVE Urine WBC (Auto) 11 Urine RBC (Auto) 1 05/20/19 15:30 WBC RBC Hgb Hct MCV MCH MCHC RDW Plt Count Seg Neutrophils % Sodium 111.4 L* Potassium 5.5 H Chloride 78 L Carbon Dioxide 22 Anion Gap 11 BUN 7 Creatinine 0.38 L Est GFR ( Amer) > 60 Est GFR (Non-Af Amer) Glucose 96 Calcium 8.4 Total Bilirubin 0.7 AST 37 H Alkaline Phosphatase 79 Total Protein 6.2 L Albumin 3.3 L Lipase 131.4 Urine Color Urine Appearance Urine pH Ur Specific [place] Urine Protein Urine Glucose (UA) Urine Ketones Urine Blood Urine Nitrite Ur Leukocyte Esterase Urine WBC (Auto) Urine RBC (Auto) 05/20/19 05/20/19 14:00 15:30 Troponin I Cancelled < 0.012 Impressions: Chest X-Ray 05/20/19 13:10 IMPRESSION: MILD CARDIOMEGALY. POSSIBLE SMALL PLEURAL EFFUSIONS. Critical Time Critical Time (minutes): 25 -: The care of a critically ill patient is dynamic. This note represents a static moment in the admission process. orders and treatments may be given simulataneously and urgentl, and time is not surgical device sales representative of the treatment process. This patient requires Critical Care secondary to life threating organ or limb dysfunction. Without the need for Critical Care services, the patient is at risk for increasid mortality and morbidity. Provider Note Provider Note: Assessment: 83 yo woman with hyponatremia due to volume depletion from GI losses and decreased po intake. Plan: 1. Respiratory: stable on room air 2. CV: HTN. prn labetalol and hydralazine. Home BP meds. 3. Endocrine: hyponatremia due to volume depletion and GI losses. Hydration with IV NS. Check freqent BMPs. Goal is to increase sodium no more than 8meq/L in 24 hours. Will check TSH. Will check urine electrolytes. Seizure precautions 4. GI/SUrgery: recent paraesophageal hernia repair and gastropexy at [facility]. Esophagitis. Continue PPI 5. Nutrition: mechanical soft diet 6. Prophylaxis: lovenox
[2019-05-20] MEDS ORDERED: LABETALOL HCL INJ 20 MG/4 ML DISP.SYRIN IV PRN (18:40)
[2019-05-20] MEDS: ONDANSETRON HCL INJ/PF 4 MG/2 ML SDV IV PRN (19:01)
[2019-05-20] MEDS: NORMAL SALINE 1000 ML 1,000 ML IV PRN (20:45)
[2019-05-20] MEDS ORDERED: MELATONIN 3 MG TABLET PO PRN (21:58)
--- NOTE | 2019-05-20 22:38 | EKG REPORT ---
SEVERITY:- OTHERWISE NORMAL ECG - SINUS ARRHYTHMIA, RATE 61-95 : Confirmed by: Eloisa Stoddard MD 20-May-2019 22:37:51
[2019-05-21 01:40] LABS: ANION GAP 13 (5-19); BLOOD UREA NITROGEN 5 mg/dL (7-20); CALCIUM 8.2 mg/dL (8.4-10.2); CARBON DIOXIDE 21 mmol/L (22-30); CHLORIDE 79 mmol/L (98-107); GLUCOSE 96 mg/dL (75-110)
[2019-05-21 01:47] LABS: POTASSIUM 4.4 mmol/L (3.6-5.0)
[2019-05-21] MEDS: ONDANSETRON HCL INJ/PF 4 MG/2 ML SDV IV PRN ×2 (04:30→17:48)
[2019-05-21] MEDS ORDERED: PANTOPRAZOLE SODIUM 40 MG TABLET.DR PO SCH (06:00)
[2019-05-21] MEDS ORDERED: PANTOPRAZOLE SODIUM 40 MG VIAL IV SCH (06:00)
[2019-05-21] MEDS: NORMAL SALINE 1000 ML 1,000 ML IV PRN ×2 (06:58→10:15)
[2019-05-21 08:03] LABS: HEMATOCRIT 34.5 % (36.0-47.0); HEMOGLOBIN 12.1 g/dL (12.0-15.5); MEAN CORPUSCULAR HEMOGLOBIN 31.8 pg (27.0-33.4); MEAN CORPUSCULAR VOLUME 91 fl (80-97); RED CELL DISTRIBUTION WIDTH 13.4 % (11.5-14.0); WHITE BLOOD COUNT 13.2 10^3/uL (4.0-10.5)
[2019-05-21 08:06] LABS: PLATELET COUNT 431 10^3/uL (150-450)
[2019-05-21 09:32] LABS: ANION GAP 13 (5-19); BLOOD UREA NITROGEN 4 mg/dL (7-20); CALCIUM 8.6 mg/dL (8.4-10.2); CARBON DIOXIDE 20 mmol/L (22-30); CHLORIDE 80 mmol/L (98-107); GLUCOSE 96 mg/dL (75-110); POTASSIUM 4.6 mmol/L (3.6-5.0)
[2019-05-21] MEDS ORDERED: ENOXAPARIN SODIUM INJ 40 MG/0.4 ML DISP.SYRIN SUBCUT SCH (10:00)
[2019-05-21 11:09] LABS: ANION GAP 13 (5-19); BLOOD UREA NITROGEN 4 mg/dL (7-20); CALCIUM 8.5 mg/dL (8.4-10.2); CARBON DIOXIDE 20 mmol/L (22-30); CHLORIDE 79 mmol/L (98-107); GLUCOSE 109 mg/dL (75-110); POTASSIUM 4.6 mmol/L (3.6-5.0)
[2019-05-21 18:38] LABS: BLOOD UREA NITROGEN 3 mg/dL (7-20); CALCIUM 8.6 mg/dL (8.4-10.2); CARBON DIOXIDE 20 mmol/L (22-30); CHLORIDE 76 mmol/L (98-107); GLUCOSE 100 mg/dL (75-110); POTASSIUM 4.7 mmol/L (3.6-5.0)
[2019-05-21 18:40] LABS: ANION GAP 13 (5-19)
[2019-05-21] MEDS ORDERED: NORMAL SALINE 250 ML IV ONE (21:15)
[2019-05-21] MEDS: MELATONIN 5 MG TABLET PO SCH (21:47)
[2019-05-21] MEDS: CEFTRIAXONE 1 GM/D5W RTU 1 GM/50 ML RTUPB IV SCH (21:48)
[2019-05-21] MEDS: METHOCARBAMOL 500 MG TABLET PO SCH (21:49)
--- NOTE | 2019-05-21 21:57 | PDOC PROGRESS REPORT ---
Subjective Progress Note for:: 05/21/19 Subjective:: Patient was admitted yesterday for hyponatremia. She has been on normal saline with minimal increase in sodium. She describes and endorses general weakness and malaise. Later in the day she had discomfort in her back and shoulders from lying in bed. Met with her son to discuss the possibility of a bladder mass. We were concerned about this because nursing reported hematuria after Gill was placed. They have been irrigating. CT scan shows a significant enlargement in the bladder mucosa consistent with possible mass. Patient may have been taking hydrochlorothiazide but have been unable to confirm this.. Urine sodium is high which would be consistent with diuretic use. She endorses a dry mouth. She has no headache and has had no neurological changes. Hemodynamics have been non- labile Reason For Visit: HYPONATREMIA,DEHYDRATION Physical Exam Vital Signs: Temp Pulse Resp BP Pulse Ox 97.9 F 102 H 17 166/92 H 97 05/21/19 20:00 05/21/19 20:00 05/21/19 20:00 05/21/19 20:00 05/21/19 20:00 Intake & Output 05/20/19 05/21/19 05/22/19 06:59 06:59 06:59 Intake Total 2000 570 Output Total 2070 1225 Balance -70 -655 Weight 79.5 kg General appearance: PRESENT: no acute distress, cooperative, hard of hearing, morbidly obese Head exam: PRESENT: atraumatic, normocephalic Eye exam: PRESENT: conjunctiva pink, EOMI, PERRLA. ABSENT: conjunctival injection, nystagmus, periorbital swelling, scleral icterus Mouth exam: PRESENT: dry mucosa, neck supple, tongue midline. ABSENT: laceration Neck exam: ABSENT: carotid bruit, JVD, lymphadenopathy, meningismus, tenderness, thyromegaly, tracheal deviation Respiratory exam: PRESENT: clear to auscultation ga. ABSENT: accessory muscle use, chest wall tenderness Cardiovascular exam: PRESENT: RRR. ABSENT: systolic murmur Pulses: PRESENT: normal carotid pulses Vascular exam: PRESENT: normal capillary refill GI/Abdominal exam: PRESENT: normal bowel sounds, soft. ABSENT: ascites, distended, firm, guarding, mass, rebound, rigid, tenderness Rectal exam: PRESENT: deferred Extremities exam: ABSENT: joint swelling Musculoskeletal exam: PRESENT: normal inspection. ABSENT: deformity, dislocation Additional comments: Pain with range of motion in shoulders. No joint deformity, dyssymmetry, erythema or swelling Neurological exam: PRESENT: alert, awake, oriented to person, oriented to place, oriented to time, oriented to situation, CN II-XII grossly intact. ABSENT: motor sensory deficit, aphasic Psychiatric exam: PRESENT: depressed Skin exam: PRESENT: dry, intact, normal color. ABSENT: abrasion, cyanosis, erythema, jaundice, mottled, pallor, petechiae, rash, skin tears, urticaria, vesicles Results Laboratory Results: 05/21/19 07:03 05/21/19 17:54 05/21/19 05/21/19 05/21/19 00:20 01:07 07:03 WBC RBC Hgb Hct MCV MCH MCHC RDW Plt Count Sodium Cancelled 112.9 L* Cancelled Potassium Cancelled 4.4 D Cancelled Chloride Cancelled 79 L Cancelled Carbon Dioxide Cancelled 21 L Cancelled Anion Gap Cancelled 13 Cancelled BUN Cancelled 5 L Cancelled Creatinine Cancelled 0.35 L Cancelled Est GFR ( Amer) Cancelled > 60 Cancelled Est GFR (Non-Af Amer) Cancelled Cancelled Glucose Cancelled 96 Cancelled Calcium Cancelled 8.2 L Cancelled TSH 05/21/19 05/21/19 05/21/19 07:03 07:03 08:55 WBC 13.2 H RBC 3.80 Hgb 12.1 Hct 34.5 L MCV 91 MCH 31.8 MCHC 35.0 RDW 13.4 Plt Count 431 Sodium 112.5 L* Potassium 4.6 Chloride 80 L Carbon Dioxide 20 L Anion Gap 13 BUN 4 L Creatinine 0.26 L Est GFR ( Amer) > 60 Est GFR (Non-Af Amer) Glucose 96 Calcium 8.6 TSH 1.18 05/21/19 05/21/19 05/21/19 10:25 15:45 17:54 WBC RBC Hgb Hct MCV MCH MCHC RDW Plt Count Sodium 111.9 L* Cancelled 109.3 L* Potassium 4.6 Cancelled 4.7 Chloride 79 L Cancelled 76 L Carbon Dioxide 20 L Cancelled 20 L Anion Gap 13 Cancelled 13 BUN 4 L Cancelled 3 L Creatinine 0.26 L Cancelled 0.31 L Est GFR ( Amer) > 60 Cancelled > 60 Est GFR (Non-Af Amer) Cancelled Glucose 109 Cancelled 100 Calcium 8.5 Cancelled 8.6 TSH 05/20/19 05/20/19 14:00 15:30 Troponin I Cancelled < 0.012 Impressions: Chest X-Ray 05/20/19 13:10 IMPRESSION: MILD CARDIOMEGALY. POSSIBLE SMALL PLEURAL EFFUSIONS. Status: Image reviewed by me - Agree with findings Assessment & Plan - Diagnosis (1) Hyponatremia Is this a current diagnosis for this admission?: Yes (2) Hypo-osmolality and hyponatremia Is this a current diagnosis for this admission?: Yes (3) Fatigue Qualifiers: Fatigue type: chronic, unspecified Qualified Code(s): R53.82 - Chronic fatigue, unspecified Is this a current diagnosis for this admission?: Yes (4) Hyperkalemia Is this a current diagnosis for this admission?: Yes (5) Physical deconditioning Is this a current diagnosis for this admission?: Yes (6) Chronic pain disorder Is this a current diagnosis for this admission?: Yes Plan: Robaxin and PT/OT (7) Bladder mass Is this a current diagnosis for this admission?: Yes Plan: Ultrasound, CBI - Time Time Spent with patient: 35 or more minutes Total Critical Time (Minutes): 50 Medications reviewed and adjusted accordingly: Yes Anticipated discharge: Acute Rehab Within: within 48 hours - Inpatient Certification Based on my medical assessment, after consideration of the patient's comorbidities, presenting symptoms, or acuity I expect that the services needed warrant INPATIENT care.: Yes I certify that my determination is in accordance with my understanding of Medicare's requirements for reasonable and necessary INPATIENT services [42 CFR 412.3e].: Yes Medical Necessity: Failure to Improve With Outpatient Therapy, Significant Comorbidiites Make Outpatient Treatment Too Risky, Need Close Monitoring Due to Risk of Patient Decompensation, Need For IV Fluids, Need for Neurological Checks, Need for Pain Control Post Hospital Care: D/C Chartered Financial Analyst Documentation - Plan Summary Plan Summary: Patient's hyponatremia has been slow to correct. However she has not had any neurological deficits implying that this has been ongoing. We will provide normal saline bolus and increase her normal saline. At this point unless she has significant neurological changes we will hold on hypertonic saline. She does have suggestion of cortisol excess given her hyperkalemia and hyponatremia will check for this with 24-hour urine. I would expect her bicarbonate to be higher. She does appear to have a urinary tract infection and has a bladder mass. We will place her on antibiotics. I will also check urine culture. She is not hemodynamically unstable however if she becomes so broad-spectrum antibiotics would be indicated given her recent sojourn in the medical establishment. Given the urinary sodium elevation she fits criteria for SIADH and we will check osmolarities. We will obtain old records from her recent stay at [facility]. We will place her on Robaxin because of her pain. If her sodium does not improve or she has neurological changes will be forced to place her on hypertonic saline. It is extremely deconditioned and will have physical therapy and human resources office assistant with her care.
[2019-05-21 22:51] LABS: ANION GAP 13 (5-19); BLOOD UREA NITROGEN 3 mg/dL (7-20); CALCIUM 8.1 mg/dL (8.4-10.2); CARBON DIOXIDE 18 mmol/L (22-30); CHLORIDE 79 mmol/L (98-107); GLUCOSE 101 mg/dL (75-110); POTASSIUM 4.9 mmol/L (3.6-5.0)
[2019-05-21 23:34] LABS: APPEARANCE,URINE CLOUDY; BILIRUBIN,URINE NEGATIVE (NEGATIVE); COLOR,URINE YELLOW; GLUCOSE, URINE NEGATIVE (NEGATIVE); KETONES,URINE 80 mg/dL (NEGATIVE); LEUKOCYTE ESTERASE,URINE LARGE (NEGATIVE); NITRITE,URINE POSITIVE (NEGATIVE); PROTEIN,URINE 30 mg/dL (NEGATIVE); URINE SPECIFIC GRAVITY 1.012; UROBILINOGEN,URINE NEGATIVE mg/dL (<2.0)
[2019-05-22 04:58] LABS: HEMATOCRIT 33.7 % (36.0-47.0); HEMOGLOBIN 11.7 g/dL (12.0-15.5); MEAN CORPUSCULAR HEMOGLOBIN 31.6 pg (27.0-33.4); MEAN CORPUSCULAR HGB CONC 34.7 g/dL (32.0-36.0); MEAN CORPUSCULAR VOLUME 91 fl (80-97); PLATELET COUNT 483 10^3/uL (150-450); RED CELL DISTRIBUTION WIDTH 13.7 % (11.5-14.0); WHITE BLOOD COUNT 11.1 10^3/uL (4.0-10.5)
[2019-05-22 05:05] LABS: INTERNATIONAL RATION (INR) 1.01; PROTHROMBIN TIME 13.3 SEC (11.4-15.4)
[2019-05-22 05:07] LABS: PARTIAL THROMBOPLASTIN TIME 35.3 SEC (23.5-35.8)
[2019-05-22 05:30] LABS: ABSOLUTE LYMPHOCYTES# (MANUAL) 0.3 10^3/uL (0.5-4.7); ABSOLUTE MONOCYTES # (MANUAL) 1.6 10^3/uL (0.1-1.4); BASOPHILS % (MANUAL) 0 % (0-2); EOSINOPHILS % (MANUAL) 2 % (0-6); LYMPHOCYTES % (MANUAL) 3 % (13-45); MONOCYTES % (MANUAL) 14 % (3-13); SEGMENTED NEUTROPHILS % (MAN) 81 % (42-78); TOTAL CELLS COUNTED 100
[2019-05-22 05:31] LABS: PLATELET COMMENT ADEQUATE; RBC MORPHOLOGY COMMENT NORMO-CYTIC/CHROMIC
[2019-05-22] MEDS: NORMAL SALINE 1000 ML 1,000 ML IV PRN (05:37)
[2019-05-22 07:57] LABS: ALBUMIN 3.1 g/dL (3.5-5.0); ALKALINE PHOSPHATASE 76 U/L (38-126); ANION GAP 14 (5-19); ASPARTATE AMINO TRANSFERASE 35 U/L (14-36); BILIRUBIN,DIRECT 0.3 mg/dL (0.0-0.4); BILIRUBIN,TOTAL 0.8 mg/dL (0.2-1.3); BLOOD UREA NITROGEN 4 mg/dL (7-20); CALCIUM 8.4 mg/dL (8.4-10.2); CARBON DIOXIDE 18 mmol/L (22-30); CHLORIDE 79 mmol/L (98-107); GLUCOSE 91 mg/dL (75-110); PHOSPHORUS 2.8 mg/dL (2.5-4.5); POTASSIUM 4.5 mmol/L (3.6-5.0); TOTAL PROTEIN 6.2 g/dL (6.3-8.2)
--- NOTE | 2019-05-22 08:53 | RADIOLOGY REPORT (SQ) ---
EXAM DESCRIPTION: CHEST SINGLE VIEW COMPLETED DATE/TIME: 05/22/2019 6:14 am REASON FOR STUDY: lung mass COMPARISON: AP view of the chest from 05/20/2019. EXAM PARAMETERS: NUMBER OF VIEWS: One view. TECHNIQUE: Single frontal radiographic view of the chest acquired. RADIATION DOSE: NA LIMITATIONS: None. FINDINGS: LUNGS AND PLEURA: Stable pleural and parenchymal bibasilar opacities that obscure the cont ours of the hemidiaphragms and blunt the costophrenic sulci. The prominence of the interstitium in t he aerated portion of the lungs could be artifactual due to low inspiratory lung volumes. There is n o pneumothorax. MEDIASTINUM AND HILAR STRUCTURES: Unchanged mediastinal and hilar contours. HEART AND VASCULAR STRUCTURES: The cardiac silhouette is partially obscured. BONES: No acute findings. HARDWARE: None in the chest. OTHER: No other finding. IMPRESSION: Stable pleural and parenchymal opacities that obscure the contours of the hemidiaphragms and blunt the costophrenic sulci - differential considerations include a combination of pleural flui d, atelectasis and/or consolidation. TECHNICAL DOCUMENTATION: JOB ID: [id number] [employer]- All Rights Reserved Reading location - IP/workstation name: [email or web address]
--- NOTE | 2019-05-22 09:01 | RADIOLOGY REPORT (SQ) ---
EXAM DESCRIPTION: U/S ABDOMEN COMPLETE W/O DOP COMPLETED DATE/TIME: 05/22/2019 7:13 am REASON FOR STUDY: Hematuria, Need bladder included COMPARISON: CT of the abdomen pelvis with contrast from 05/16/2019. TECHNIQUE: Dynamic and static grayscale images acquired of the abdomen and recorded on PACS. Additio nal selected color Doppler and spectral images recorded. Note: Study does not meet criteria for complete doppler/duplex scan LIMITATIONS: Limited ultrasound of the abdomen. FINDINGS: PANCREAS: Unable to visualize the pancreas. LIVER: Limited evaluation of the liver. The echotexture of the hepatic parenchyma heterogeneous and hyperechoic. LIVER VASCULATURE: Limited evaluation of the hepatic vasculature. GALLBLADDER: Limited evaluation of the gallbladder. The gallbladder wall measures 1.5 mm in thicknes s. There is no cholelithiasis, sludge or pericholecystic fluid. ULTRASOUND-DETECTED TOLENTINO'S SIGN: Negative. INTRAHEPATIC DUCTS AND COMMON DUCT: The common bile duct measures 6.2 mm in diameter. There is no di latation of the intrahepatic biliary ducts. INFERIOR VENA CAVA: Limited evaluation of the IVC. AORTA: Unable to visualize the aorta. RIGHT KIDNEY: The right kidney measures 9.8 cm in length. There is no hydronephrosis. LEFT KIDNEY: Unable to visualize the left kidney. SPLEEN: Unable to visualize the spleen. PERITONEAL AND PLEURAL SPACES: No ascites. OTHER: Despite clamping the Gill catheter for 1 and 0.5 hours evaluation of the bladder is limited. IMPRESSION: Limited abdominal ultrasound with nonvisualization of the pancreas, aorta, IVC, left kid demetria, and spleen and limited visualization of the hepatic vasculature and urinary bladder. The echote xture of the liver is heterogeneous and hyperechoic; these findings could relate to hepatic steatosis . The gallbladder wall is normal in thickness and there are no other ancillary findings to suggest a n acute cholecystitis. There is no right-sided hydronephrosis or ascites. TECHNICAL DOCUMENTATION: JOB ID: [id number] [employer]- All Rights Reserved Reading location - IP/workstation name: [email or web address]
[2019-05-22] MEDS: METHOCARBAMOL 500 MG TABLET PO SCH ×4 (09:46→22:08)
[2019-05-22] MEDS ORDERED: MAGNESIUM SULFATE PF/INJ 40 MEQ/10 ML SDV IV ONE (09:51)
[2019-05-22] MEDS: MAGNESIUM SULFATE/D5W 1 GM/100 ML RTUPB IV SCH ×3 (11:00→14:29)
--- NOTE | 2019-05-22 14:45 | RADIOLOGY REPORT (SQ) ---
EXAM DESCRIPTION: PICC INSERTION; FLUORO/CV PLACEMENT; U/S GUIDE FOR VASCULAR ACCESS COMPLETED DATE/TIME: 05/22/2019 2:13 pm REASON FOR STUDY: hyponatremia with need for hypertonic saline; IV ACCESS COMPARISON: None. FLUOROSCOPY TIME: 24 seconds. 2 images saved to PACS. TECHNIQUE: Refer to Procedure. LIMITATIONS: None. PROCEDURE: The procedure, risks, benefits, and alternatives were discussed with the patient in the p reprocedural area, and all questions were answered. Informed consent was obtained verbally and in wri ting. The patient was then brought to the procedural suite, positioned supine on the fluoroscopy table, and a time-out was performed. At first the left upper extremity was evaluated with ultrasound and the brachial vein was found to be patent and compressible. The left upper extremity was then prepped and draped with 2% chlorhexidine utilizing standard sterile technique. After the skin over the brachial vein was anesthetized with 1% lidocaine, ultrasound guidance was used to access the vessel with a 21-gauge needle - a sonographic i mage was stored for documentation. A 0.018 inch guidewire was then inserted through the needle and ad vanced under fluoroscopic guidance into the SVC. After that, the needle was exchanged over the guidew rula for a peel-away sheath. A 5 [place]uvian dual -lumen PICC was then cut to the appropriate length of 42 cm, inserted through the sheath and advanced under fluoroscopic guidance into the SVC. After that, th e peel-away sheath was removed and a fluoroscopic image of the chest was obtained to confirm proper p osition of the catheter tip within SVC. The lumens of the PICC were then aspirated, flushed with sterile saline and heparinized. At the end of the procedure the PICC was secured in place and a sterile dressing applied over it. The patient tolerated the procedure well without immediate complication. At the end of the procedure the patient's condition was unchanged from the preprocedural baseline. No IV conscious sedation was administered. Physiologic monitoring was provided before, during, and after the procedure. Documentation of [id number] time performing proceduralist spent monitoring the patient: 15 minutes. IMPRESSION: Successful placement of a 5 [place]uv[place] dual lumen PICC via the left brachial vein utilizing fluoroscopic and sonographic guidance. COMMENT: Patient medication list reviewed: Yes- Quality ID# [id number]:Eligible professional attests to doc umenting in the medical record they obtained, updated, or reviewed the patient's current medications. . Quality ID 145: Final reports for procedures using fluoroscopy that document radiation exposure silke rajan, or exposure time and number of fluorographic images (if radiation exposure indices are not avail able) Quality ID #76: The patient was prepped and draped using maximum sterile barrier technique including cap, mask, sterile gown, sterile gloves, a large sterile sheet, hand hygiene, and 2% Chlorhexidine fo r cutaneous antisepsis. When ultrasound is used, sterile ultrasound techniques are followed requiring sterile gel and sterile probes. TECHNICAL DOCUMENTATION: JOB ID: [id number] [employer]- All Rights Reserved rev Reading location - IP/workstation name: [email or web address]
[2019-05-22 15:09] LABS: ANION GAP 13 (5-19); BLOOD UREA NITROGEN 3 mg/dL (7-20); CALCIUM 8.3 mg/dL (8.4-10.2); CARBON DIOXIDE 18 mmol/L (22-30); CHLORIDE 78 mmol/L (98-107); GLUCOSE 105 mg/dL (75-110)
[2019-05-22] MEDS ORDERED: SODIUM CHLORIDE 3% 500 ML IV ONE (16:00)
[2019-05-22] MEDS ORDERED: NORMAL SALINE 10 ML SDV (AFTER EACH USE) IV PRN (16:00)
[2019-05-22 19:02] LABS: BLOOD UREA NITROGEN < 2 mg/dL (7-20); CALCIUM 7.4 mg/dL (8.4-10.2); CARBON DIOXIDE 20 mmol/L (22-30); CHLORIDE 87 mmol/L (98-107); GLUCOSE 101 mg/dL (75-110); POTASSIUM 3.4 mmol/L (3.6-5.0)
[2019-05-22 19:08] LABS: ANION GAP 11 (5-19)
[2019-05-22] MEDS ORDERED: DEXTROSE 5% IV ONE (19:25)
[2019-05-22] MEDS ORDERED: WATER IV ONE (19:25)
[2019-05-22] MEDS ORDERED: DEXTROSE 5%-WATER 1000 ML 1,000 ML IV PRN ×2 (19:25→19:58)
[2019-05-22] MEDS ORDERED: POTASSIUM CHLORIDE 20 MEQ PACKET PO ONE (19:55)
[2019-05-22] MEDS ORDERED: DESMOPRESSIN ACETATE INJ 4 MCG/1 ML AMPULE SUBCUT ONE (20:00)
[2019-05-22] MEDS: CEFTRIAXONE 1 GM/D5W RTU 1 GM/50 ML RTUPB IV SCH (22:05)
[2019-05-22] MEDS: POTASSI CL 20 MEQ/50 ML RIDER 20 MEQ/50 ML RTUPB IV SCH ×2 (22:06→23:51)
[2019-05-22] MEDS: HEPARIN SOD (PORCINE) 5,000 UNIT/ML 1 ML VIAL SUBCUT SCH (22:06)
[2019-05-22] MEDS: MELATONIN 5 MG TABLET PO SCH (22:32)
[2019-05-22] MEDS: NORMAL SALINE 10 ML SDV (SCHEDULED) IV SCH (23:50)
[2019-05-23 00:08] LABS: ANION GAP 10 (5-19); BLOOD UREA NITROGEN 3 mg/dL (7-20); CARBON DIOXIDE 21 mmol/L (22-30); CHLORIDE 77 mmol/L (98-107); GLUCOSE 112 mg/dL (75-110); POTASSIUM 4.1 mmol/L (3.6-5.0)
[2019-05-23] MEDS ORDERED: SODIUM CHLORIDE 3% 500 ML IV ONE ×3 (01:00→19:40)
[2019-05-23] MEDS: ONDANSETRON HCL INJ/PF 4 MG/2 ML SDV IV PRN ×2 (03:00→17:52)
[2019-05-23 03:40] LABS: ANION GAP 11 (5-19); BLOOD UREA NITROGEN 4 mg/dL (7-20); CALCIUM 8.3 mg/dL (8.4-10.2); CARBON DIOXIDE 21 mmol/L (22-30); CHLORIDE 78 mmol/L (98-107); GLUCOSE 101 mg/dL (75-110); POTASSIUM 4.7 mmol/L (3.6-5.0)
[2019-05-23] MEDS: HEPARIN SOD (PORCINE) 5,000 UNIT/ML 1 ML VIAL SUBCUT SCH ×3 (06:30→23:11)
[2019-05-23 07:08] LABS: ANION GAP 11 (5-19); BLOOD UREA NITROGEN 4 mg/dL (7-20); CALCIUM 8.2 mg/dL (8.4-10.2); CARBON DIOXIDE 21 mmol/L (22-30); CHLORIDE 78 mmol/L (98-107); GLUCOSE 97 mg/dL (75-110); POTASSIUM 4.5 mmol/L (3.6-5.0)
[2019-05-23] MEDS ORDERED: SODIUM CHLORIDE 3% 500 ML IV PRN (08:08)
[2019-05-23] MEDS: NORMAL SALINE 10 ML SDV (SCHEDULED) IV SCH ×2 (09:34→23:13)
[2019-05-23] MEDS: METHOCARBAMOL 500 MG TABLET PO SCH ×4 (09:34→23:11)
[2019-05-23] MEDS ORDERED: SENNOSIDES/DOCUSATE 8.6-50 MG 1 EACH TABLET PO PRN (10:00)
[2019-05-23 10:28] LABS: ANION GAP 11 (5-19); BLOOD UREA NITROGEN 4 mg/dL (7-20); CALCIUM 8.5 mg/dL (8.4-10.2); CARBON DIOXIDE 22 mmol/L (22-30); CHLORIDE 78 mmol/L (98-107); GLUCOSE 102 mg/dL (75-110); POTASSIUM 4.3 mmol/L (3.6-5.0)
[2019-05-23] MEDS: LACTULOSE SYRUP 20 GM/30 ML UDCUP PO SCH ×2 (11:34→17:34)
[2019-05-23] MEDS: POLYETHYLENE GLYCOL 3350 POWDER 17 GM/1 PACKET PO SCH (11:34)
[2019-05-23 11:47] LABS: ANION GAP 12 (5-19); BLOOD UREA NITROGEN 4 mg/dL (7-20); CALCIUM 8.3 mg/dL (8.4-10.2); CARBON DIOXIDE 20 mmol/L (22-30); CHLORIDE 78 mmol/L (98-107); GLUCOSE 102 mg/dL (75-110); POTASSIUM 4.5 mmol/L (3.6-5.0)
[2019-05-23 13:19] LABS: ANION GAP 11 (5-19); BLOOD UREA NITROGEN 5 mg/dL (7-20); CALCIUM 8.4 mg/dL (8.4-10.2); CARBON DIOXIDE 21 mmol/L (22-30); CHLORIDE 78 mmol/L (98-107); GLUCOSE 116 mg/dL (75-110); POTASSIUM 4.2 mmol/L (3.6-5.0)
[2019-05-23 15:17] LABS: ANION GAP 10 (5-19); BLOOD UREA NITROGEN 5 mg/dL (7-20); CALCIUM 8.5 mg/dL (8.4-10.2); CARBON DIOXIDE 21 mmol/L (22-30); CHLORIDE 79 mmol/L (98-107); GLUCOSE 106 mg/dL (75-110); POTASSIUM 4.4 mmol/L (3.6-5.0)
[2019-05-23 17:18] LABS: BLOOD UREA NITROGEN 5 mg/dL (7-20); CALCIUM 8.4 mg/dL (8.4-10.2); CARBON DIOXIDE 21 mmol/L (22-30); CHLORIDE 79 mmol/L (98-107); GLUCOSE 105 mg/dL (75-110); POTASSIUM 4.3 mmol/L (3.6-5.0)
[2019-05-23 17:20] LABS: ANION GAP 10 (5-19)
[2019-05-23 19:28] LABS: BLOOD UREA NITROGEN 5 mg/dL (7-20); CALCIUM 8.5 mg/dL (8.4-10.2); CARBON DIOXIDE 21 mmol/L (22-30); CHLORIDE 80 mmol/L (98-107); GLUCOSE 134 mg/dL (75-110); POTASSIUM 4.2 mmol/L (3.6-5.0)
[2019-05-23 19:29] LABS: ANION GAP 9 (5-19)
--- NOTE | 2019-05-23 20:03 | PDOC PROGRESS REPORT ---
Subjective Progress Note for:: 05/23/19 Subjective:: 05.23.19: Patient as noted below abrupt rise in her sodium. She was started on DDAVP clamp protocol. Sodiums have returned to their baseline level and have increased in an acceptable pattern on 3% saline. Spite these changes she has had no neurological deficits. She still complains of weakness. No chest pain no shortness of breath. She is starting to take in a dysphagia type diet. 05.22.2019: Patient continues to have persistent hyponatremia despite sodium chloride supplementation. She still endorses weakness and malaise and does not feel well. She has mild nausea. There has been no seizures no neurological focal deficits other than weakness. He has noted to have a positive urine and we are awaiting microbiology to determine whether there is an active infection. Does not show any signs of sepsis nor has had any hemodynamic instability. Because of her persistent hyponatremia and weakness a PICC line was placed and patient was started on hypertonic saline at low dose. In approximately 4 to 5 hours time her sodium levels went from 109-110 to 117. The hypertonic saline was going at 20 cc/h. This appeared to induce a reactive diuresis. Given the sharp increase in sodium patient was given DDAVP and a D5 W bolus at 250 cc with a continuous rate of 10 mL's per hour. Multiple examinations were done to assure neurological stability. Patient continues to endorse improvement or weakness. There is no evidence to support any pontine or cranial nerve deficits. 05.21.2019: Patient was admitted yesterday for hyponatremia. She has been on normal saline with minimal increase in sodium. She describes and endorses general weakness and malaise. Later in the day she had discomfort in her back and shoulders from lying in bed. Met with her son to discuss the possibility of a bladder mass. We were concerned about this because nursing reported hematuria after Gill was placed. They have been irrigating. CT scan shows a significant enlargement in the bladder mucosa consistent with possible mass. Patient may have been taking hydrochlorothiazide but have been unable to confirm this.. Urine sodium is high which would be consistent with diuretic use. She endorses a dry mouth. She has no headache and has had no neurological changes. Hemodynamics have been non-labile Reason For Visit: HYPONATREMIA,DEHYDRATION Physical Exam Vital Signs: Temp Pulse Resp BP Pulse Ox 97.2 F 99 16 152/89 H 99 05/23/19 10:01 05/23/19 10:00 05/23/19 10:01 05/23/19 10:01 05/23/19 10:01 Intake & Output 05/22/19 05/23/19 05/24/19 06:59 06:59 06:59 Intake Total 1680 1674 150 Output Total 1825 1140 25 Balance -145 534 125 General appearance: PRESENT: no acute distress, cooperative, hard of hearing, morbidly obese Head exam: PRESENT: atraumatic, normocephalic Eye exam: PRESENT: conjunctiva pink, EOMI, PERRLA. ABSENT: conjunctival injection, nystagmus, scleral icterus Mouth exam: PRESENT: moist, neck supple Neck exam: ABSENT: carotid bruit, JVD, meningismus, tenderness, thyromegaly Respiratory exam: PRESENT: clear to auscultation ga. ABSENT: accessory muscle use, chest wall tenderness, unlabored Cardiovascular exam: PRESENT: tachycardia Pulses: PRESENT: +1 pedal pulses bilateral Vascular exam: PRESENT: normal capillary refill GI/Abdominal exam: PRESENT: normal bowel sounds, soft. ABSENT: ascites, diste nded, firm, guarding, mass, Moran's sign, rebound, rigid, tenderness Gentrourinary exam: PRESENT: indwelling catheter - No blood noted Musculoskeletal exam: PRESENT: normal inspection. ABSENT: deformity, dislocation Neurological exam: PRESENT: awake, oriented to person, oriented to place, oriented to situation, CN II-XII grossly intact. ABSENT: motor sensory deficit, aphasic Psychiatric exam: PRESENT: flat affect. ABSENT: agitated, anxious Skin exam: PRESENT: intact, normal color. ABSENT: cyanosis, erythema, jaundice, mottled, petechiae Results Laboratory Results: 05/22/19 04:18 05/23/19 10:58 05/22/19 05/22/19 05/22/19 14:21 18:10 23:31 Sodium 109.3 L* 117.8 L* 108.2 L* Potassium 4.0 3.4 L 4.1 Chloride 78 L 87 L 77 L Carbon Dioxide 18 L 20 L 21 L Anion Gap 13 11 10 BUN 3 L < 2 L 3 L Creatinine 0.25 L 0.21 L 0.33 L Est GFR ( Amer) > 60 > 60 > 60 Glucose 105 101 112 H Calcium 8.3 L 7.4 L 8.0 L 05/23/19 05/23/19 05/23/19 03:00 06:30 09:36 Sodium 109.6 L* 110.4 L* 111.3 L* Potassium 4.7 4.5 4.3 Chloride 78 L 78 L 78 L Carbon Dioxide 21 L 21 L 22 Anion Gap 11 11 11 BUN 4 L 4 L 4 L Creatinine 0.34 L 0.32 L 0.33 L Est GFR ( Amer) > 60 > 60 > 60 Glucose 101 97 102 Calcium 8.3 L 8.2 L 8.5 05/23/19 10:58 Sodium 110.1 L* Potassium 4.5 Chloride 78 L Carbon Dioxide 20 L Anion Gap 12 BUN 4 L Creatinine 0.31 L Est GFR ( Amer) > 60 Glucose 102 Calcium 8.3 L 05/20/19 05/20/19 14:00 15:30 Troponin I Cancelled < 0.012 Impressions: Abdomen Ultrasound 05/22/19 00:00 IMPRESSION: Limited abdominal ultrasound with nonvisualization of the pancreas, aorta, IVC, left kidney, and spleen and limited visualization of the hepatic vasculature and urinary bladder. The echotexture of the liver is heterogeneous and hyperechoic; these findings could relate to hepatic steatosis. The gallb ladder wall is normal in thickness and there are no other ancillary findings to suggest an acute cholecystitis. There is no right-sided hydronephrosis or ascites. Guidance Fluoroscopy 05/22/19 00:00 IMPRESSION: Successful placement of a 5 [place] dual lumen PICC via the left brachial vein utilizing fluoroscopic and sonographic guidance. Interventional Vascular Procedure 05/22/19 00:00 IMPRESSION: Successful placement of a 5 [place] dual lumen PICC via the left brachial vein utilizing fluoroscopic and sonographic guidance. PICC Line Insertion 05/22/19 00:00 IMPRESSION: Successful placement of a 5 [place] dual lumen PICC via the left brachial vein utilizing fluoroscopic and sonographic guidance. Chest X-Ray 05/22/19 06:00 IMPRESSION: Stable pleural and parenchymal opacities that obscure the contours of the hemidiaphragms and blunt the costophrenic sulci - differential considerations include a combination of pleural fluid, atelectasis and/or consolidation. Assessment & Plan - Diagnosis (1) Hyponatremia Is this a current diagnosis for this admission?: Yes (2) Hypo-osmolality and hyponatremia Is this a current diagnosis for this admission?: Yes (3) Fatigue Qualifiers: Fatigue type: chronic, unspecified Qualified Code(s): R53.82 - Chronic fatigue, unspecified Is this a current diagnosis for this admission?: Yes (4) Hyperkalemia Is this a current diagnosis for this admission?: Yes (5) Physical deconditioning Is this a current diagnosis for this admission?: Yes (6) Chronic pain disorder Is this a current diagnosis for this admission?: Yes (7) Bladder mass Is this a current diagnosis for this admission?: Yes (8) Hematuria due to cystitis Is this a current diagnosis for this admission?: Yes Plan: Improved. No longer present (9) Complicated urinary tract infection Is this a current diagnosis for this admission?: Yes Plan: Has bladder mass. Await gram stain and culture. Continue antibiotics - Time Time Spent with patient: 35 or more minutes Total Critical Time (Minutes): 50 - Multiple examinations and interventions Medications reviewed and adjusted accordingly: Yes Anticipated discharge: Acute Rehab - Inpatient Certification Based on my medical assessment, after consideration of the patient's comorbidities, presenting symptoms, or acuity I expect that the services needed warrant INPATIENT care.: Yes I certify that my determination is in accordance with my understanding of Medicare's requirements for reasonable and necessary INPATIENT services [42 CFR 412.3e].: Yes Medical Necessity: Need For IV Fluids, Need for Neurological Checks, Need for IV Antibiotics - Plan Summary Plan Summary: Patient has had acceptable slow but continuous improvement in her sodium. The D DAVP clamp appears to be effective and working well. We will increase her 3% sodium based on BMP results. We will continue constant neurological monitoring. Patient has no neurological deficits. She did complain of a headache earlier but this appears to be all related to her neck muscle and improved with just motion. Have chronic pain especially in her shoulders. I had a long discussion with the son regarding the bladder mass. This appears to be causing the hyponatremia. I asked the son if we considered sending her for a procedure to make a diagnosis would he want treatment he was ambivalent. He would like to have a tissue biopsy. Our thought process was to get her sodium levels at an acceptable level and possibly have her seen as an outpatient with urology. My only concern is that I believe this mass may be driving the continued hyponatremia. Reviewed the records from the patient's last admission at [facility] they note that she has a history of chronic hyponatremia with a baseline sodium that hovers between 128-130. Continue current plan and therapy and be vigilant to follow neurological examination and sodium levels. Multiple examinations and fluid adjustments were made throughout the last 24 hours. 05.22.19: Patient did show initial improvement with improvement in her sodium today. I am most concerned about the rapid increase and have begun DDAVP Therapy. In this mode of clamp therapy taking control of urine output with a rapidly rising sodium is in the patient patient's best interest. We will also give D5 to reduce the sodium. The plan is to only increase by 0.5 mmol every 2 hours with certainly no excess more than 8 to 12 mmol in 24 hours. I have asked nursing to continue to be vigilant in checking sodium levels and neurologic checks. On repeat examination patient does not appear to have any neurological side effects but will be prudent to continue to follow this up. We did place a PICC line because of the concerned that labs were being drawn above where the IV fluids were being given. 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 Her symptoms are best explained by this. We will be vigilant to watch for osmotic demyelination as well. I had a discussion with the family regarding her overall deconditioned state and her wishes should a cardiac or respiratory event occur. Even though I do not perceive that this is going to happen given her age and morbidities this is a possibility. She did have hematuria and we held her Lovenox. I will start heparin therapy and concern for DVT. We will watch for recurrent hematuria. The care of a critically ill patient is dynamic. This note represents a static time-frame in the admission process. Orders and treatments may be given simultaneously and urgently, and time is not business services representative of the treatment process. This patient requires Critical Care secondary to life-threatening organ or limb dysfunction. Without the need for Critical Care services, the patient is at risk for increased mortality and morbidity. MPOA: SonGee
[2019-05-23] MEDS: CEFTRIAXONE 1 GM/D5W RTU 1 GM/50 ML RTUPB IV SCH (23:11)
[2019-05-23] MEDS: MELATONIN 5 MG TABLET PO SCH (23:12)
[2019-05-24 00:02] LABS: ANION GAP 6 (5-19); BLOOD UREA NITROGEN 6 mg/dL (7-20); CALCIUM 8.6 mg/dL (8.4-10.2); CARBON DIOXIDE 26 mmol/L (22-30); CHLORIDE 81 mmol/L (98-107); GLUCOSE 111 mg/dL (75-110); POTASSIUM 4.1 mmol/L (3.6-5.0)
[2019-05-24 04:41] LABS: ANION GAP 8 (5-19); BLOOD UREA NITROGEN 6 mg/dL (7-20); CALCIUM 8.7 mg/dL (8.4-10.2); CARBON DIOXIDE 25 mmol/L (22-30); CHLORIDE 84 mmol/L (98-107); GLUCOSE 111 mg/dL (75-110)
[2019-05-24] MEDS: HEPARIN SOD (PORCINE) 5,000 UNIT/ML 1 ML VIAL SUBCUT SCH ×2 (05:50→15:20)
[2019-05-24] MEDS: METHOCARBAMOL 500 MG TABLET PO SCH ×3 (11:07→17:38)
[2019-05-24] MEDS: NORMAL SALINE 10 ML SDV (SCHEDULED) IV SCH (11:07)
[2019-05-24] MEDS: LACTULOSE SYRUP 20 GM/30 ML UDCUP PO SCH ×2 (11:07→17:38)
[2019-05-24] MEDS: POLYETHYLENE GLYCOL 3350 POWDER 17 GM/1 PACKET PO SCH (11:07)
[2019-05-24] MEDS ORDERED: DEXTROSE 5%-WATER 250 ML IV ONE (11:30)
[2019-05-24 11:48] LABS: ANION GAP 8 (5-19); BLOOD UREA NITROGEN 7 mg/dL (7-20); CARBON DIOXIDE 25 mmol/L (22-30); CHLORIDE 85 mmol/L (98-107); GLUCOSE 134 mg/dL (75-110); POTASSIUM 3.8 mmol/L (3.6-5.0)
[2019-05-24] MEDS ORDERED: METOPROLOL TARTRATE 25 MG TABLET PO SCH (12:02)
[2019-05-24] MEDS ORDERED: DEXTROSE 5%-WATER 1000 ML 1,000 ML IV PRN (12:03)
[2019-05-24] MEDS ORDERED: FAMOTIDINE 20 MG TABLET PO SCH (12:15)
[2019-05-24] MEDS ORDERED: VANCOMYCIN HCL 0 MG in DEXTROSE 5%-WATER 250 ML IV NR (12:15)
[2019-05-24] MEDS ORDERED: CEFEPIME 1 GM/D5W RTU 1 GM/50 ML RTUPB IV SCH (12:30)
[2019-05-24] MEDS: SUCRALFATE 1 GM TABLET PO SCH ×2 (12:44→17:38)
[2019-05-24] MEDS ORDERED: DESMOPRESSIN ACETATE INJ 4 MCG/1 ML AMPULE IV ONE (12:45)
--- NOTE | 2019-05-24 12:50 | PDOC PROGRESS REPORT ---
Subjective Progress Note for:: 05/24/19 Subjective:: 05.24.19: Remains asymptomatic. Her sodium levels were rising acceptably however this morning's sodium was 116. A repeat sodium was 118. Despite this she has no evidence of pontine dysfunction. She is taking occasional oral intake. She has been slightly tachycardic without and her beta-damaso has been restarted. There has been no hypotension. She did have a slight increase in her urine output in association with the increase in sodium. She had her 3% saline increased last night because of slow improvement. There is been no chest pain no shortness of breath. She she does still endorse weakness. No fevers no abdominal pain no further hematuria on heparin. 05.23.19: Patient as noted below abrupt rise in her sodium. She was started on DDAVP clamp protocol. Sodiums have returned to their baseline level and have increased in an acceptable pattern on 3% saline. Spite these changes she has had no neurological deficits. She still complains of weakness. No chest pain no shortness of breath. She is starting to take in a dysphagia type diet. 05.22.2019: Patient continues to have persistent hyponatremia despite sodium chloride supplementation. She still endorses weakness and malaise and does not feel well. She has mild nausea. There has been no seizures no neurological focal deficits other than weakness. He has noted to have a positive urine and we are awaiting microbiology to determine whether there is an active infection. Does not show any signs of sepsis nor has had any hemodynamic instability. Because of her persistent hyponatremia and weakness a PICC line was placed and patient was started on hypertonic saline at low dose. In approximately 4 to 5 hours time her sodium levels went from 109-110 to 117. The hypertonic saline was going at 20 cc/h. This appeared to induce a reactive diuresis. Given the sharp increase in sodium patient was given DDAVP and a D5 W bolus at 250 cc with a continuous rate of 10 mL's per hour. Multiple examinations were done to assure neurological stability. Patient continues to endorse improvement or weakness. There is no evidence to support any pontine or cranial nerve deficits. 05.21.2019: Patient was admitted yesterday for hyponatremia. She has been on normal saline with minimal increase in sodium. She describes and endorses general weakness and malaise. Later in the day she had discomfort in her back and shoulders from lying in bed. Met with her son to discuss the possibility of a bladder mass. We were concerned about this because nursing reported hematuria after Gill was placed. They have been irrigating. CT scan shows a significant enlargement in the bladder mucosa consistent with possible mass. Patient may have been taking hydrochlorothiazide but have been unable to confirm this.. Urine sodium is high which would be consistent with diuretic use. She endorses a dry mouth. She has no headache and has had no neurological changes. Hemodynamics have been non-labile Reason For Visit: HYPONATREMIA,DEHYDRATION Physical Exam Vital Signs: Temp Pulse Resp BP Pulse Ox 97.3 F 90 13 125/77 94 05/24/19 10:01 05/24/19 08:00 05/24/19 10:01 05/24/19 10:01 05/24/19 10:00 Intake & Output 05/23/19 05/24/19 05/25/19 06:59 06:59 06:59 Intake Total 1724 180 250 Output Total 1140 820 180 Balance 584 -640 70 Weight 81.6 kg General appearance: PRESENT: no acute distress, cooperative, hard of hearing, obese Head exam: PRESENT: atraumatic, normocephalic Eye exam: PRESENT: conjunctiva pink, EOMI, PERRLA. ABSENT: conjunctival injection, nystagmus, scleral icterus Mouth exam: PRESENT: moist, neck supple, tongue midline Neck exam: PRESENT: JVD, lymphadenopathy, other. ABSENT: carotid bruit, meningismus, thyromegaly, tracheal deviation Additional comments: Restricted neck movement Respiratory exam: PRESENT: clear to auscultation ga. ABSENT: accessory muscle use Cardiovascular exam: PRESENT: +S1, +S2, tachycardia Pulses: PRESENT: +1 pedal pulses bilateral Vascular exam: PRESENT: normal capillary refill GI/Abdominal exam: PRESENT: normal bowel sounds, soft. ABSENT: ascites, distended, firm, guarding, mass, Moran's sign, organolmegaly, rebound, rigid, tenderness Gentrourinary exam: PRESENT: indwelling catheter Extremities exam: PRESENT: pedal edema - Mild Musculoskeletal exam: PRESENT: normal inspection. ABSENT: tenderness Neurological exam: PRESENT: awake, oriented to person, oriented to place, oriented to time, oriented to situation, CN II-XII grossly intact. ABSENT: motor sensory deficit, aphasic Psychiatric exam: PRESENT: flat affect. ABSENT: agitated, anxious Focused psych exam: ABSENT: catatonic Skin exam: PRESENT: intact, normal color. ABSENT: cyanosis, erythema, jaundice, mottled, pallor, petechiae, rash, urticaria, vesicles Results Laboratory Results: 05/22/19 04:18 05/23/19 05/23/19 05/23/19 12:33 14:47 16:23 Sodium 110.2 L* 110.0 L* 109.9 L* Potassium 4.2 4.4 4.3 Chloride 78 L 79 L 79 L Carbon Dioxide 21 L 21 L 21 L Anion Gap 11 10 10 BUN 5 L 5 L 5 L Creatinine 0.29 L 0.29 L 0.32 L Est GFR ( Amer) > 60 > 60 > 60 Glucose 116 H 106 105 Calcium 8.4 8.5 8.4 05/23/19 05/23/19 05/24/19 18:39 23:24 04:05 Sodium 110.4 L* 113.1 L* 116.5 L* Potassium 4.2 4.1 4.0 Chloride 80 L 81 L 84 L Carbon Dioxide 21 L 26 25 Anion Gap 9 6 8 BUN 5 L 6 L 6 L Creatinine 0.30 L 0.33 L 0.34 L Est GFR ( Amer) > 60 > 60 > 60 Glucose 134 H 111 H 111 H Calcium 8.5 8.6 8.7 05/20/19 05/20/19 14:00 15:30 Troponin I Cancelled < 0.012 Impressions: Abdomen Ultrasound 05/22/19 00:00 IMPRESSION: Limited abdominal ultrasound with nonvisualization of the pancreas, aorta, IVC, left kidney, and spleen and limited visualization of the hepatic vasculature and urinary bladder. The echotexture of the liver is heterogeneous and hyperechoic; these findings could relate to hepatic steatosis. The gallbladder wall is normal in thickness and there are no other ancillary findings to suggest an acute cholecystitis. There is no right-sided hydronephrosis or ascites. Guidance Fluoroscopy 05/22/19 00:00 IMPRESSION: Successful placement of a 5 Danish dual lumen PICC via the left brachial vein utilizing fluoroscopic and sonographic guidance. Interventional Vascular Procedure 05/22/19 00:00 IMPRESSION: Successful placement of a 5 Danish dual lumen PICC via the left brachial vein utilizing fluoroscopic and sonographic guidance. PICC Line Insertion 05/22/19 00:00 IMPRESSION: Successful placement of a 5 Danish dual lumen PICC via the left brachial vein utilizing fluoroscopic and sonographic guidance. Chest X-Ray 05/22/19 06:00 IMPRESSION: Stable pleural and parenchymal opacities that obscure the contours of the hemidiaphragms and blunt the costophrenic sulci - differential considerations include a combination of pleural fluid, atelectasis and/or consolidation. Assessment & Plan - Diagnosis (1) Hyponatremia Is this a current diagnosis for this admission?: Yes (2) Hypo-osmolality and hyponatremia Is this a current diagnosis for this admission?: Yes (3) Fatigue Qualifiers: Fatigue type: chronic, unspecified Qualified Code(s): R53.82 - Chronic fatigue, unspecified Is this a current diagnosis for this admission?: Yes (4) Hyperkalemia Is this a current diagnosis for this admission?: Yes (5) Physical deconditioning Is this a current diagnosis for this admission?: Yes (6) Chronic pain disorder Is this a current diagnosis for this admission?: Yes (7) Bladder mass Is this a current diagnosis for this admission?: Yes (8) Hematuria due to cystitis Is this a current diagnosis for this admission?: Yes (9) Complicated urinary tract infection Is this a current diagnosis for this admission?: Yes - Time Time Spent with patient: 35 or more minutes Total Critical Time (Minutes): 50 Medications reviewed and adjusted accordingly: Yes Anticipated discharge: [facility] Within: within 24 hours - Inpatient Certification Based on my medical assessment, after consideration of the patient's comor bidities, presenting symptoms, or acuity I expect that the services needed warrant INPATIENT care.: Yes I certify that my determination is in accordance with my understanding of Medicare's requirements for reasonable and necessary INPATIENT services [42 CFR 412.3e].: Yes Medical Necessity: Need Close Monitoring Due to Risk of Patient Decompensation, Need For IV Fluids, Need for Neurological Checks, Need for IV Antibiotics Post Hospital Care: D/C Professor Of English Documentation - Plan Summary Plan Summary: 05.24.19 : She had been responding to conservative therapy with 3% and DDAVP clamp. She has had a sudden incremental rise sodium to 118. She had a slow rise to 113 up until midnight last night with an increase in urine output we have a recrudescence of overcorrection despite very close conservative management. She has remained asymptomatic and shows no signs of pontine demise demyelination. She does have weakness which is related to chronic illness and recent multiple hospital admissions. She has not had any hematuria on subcutaneous DVT chemical prophylaxis. She is taking some oral intake and and much better than earlier in her admission. She has had some tachycardia without any hypotension this is most likely related to discontinuation of her beta-block er. I have restarted this. She also has chronic pain and has been on Neurontin. I have restarted this as well at 100 mg 3 times daily low dose. The possibility of this contributing to SIADH is of diagnostic consideration. 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 Our hope was to improve her situation and see outpatient urology for biopsy however I fear that the mass is driving the recurrent hyponatremia and the difficulty with correction. In concerned I reached out to [facility] for [facility] to evaluate the patient for possible transfer specifically to be seen by urologist for tissue biopsy and also further advanced oncology care should the tumor be malignant. I have also sent aldosterone and renin levels on the 3%. We will continue to provide vigilant BMP monitoring. I have reintroduced a DDAVP "clamp" with 2 m[address] her on D5W. Likely we will continue to monitor her neurological status. The patient has been accepted at [facility] in [place]. Await bed placement. 05.23.19 Patient has had acceptable slow but continuous improvement in her sodium. The DDAVP clamp appears to be effective and working well. We will increase her 3% sodium based on BMP results. We will continue constant neurological monitoring. Patient has no neurological deficits. She did complain of a headache earlier but this appears to be all related to her neck muscle and improved with just motion. Have chronic pain especially in her shoulders. I had a long discussion with the son regarding the bladder mass. This appears to be causing the hyponatremia. I asked the son if we considered sending her for a procedure to make a diagnosis would he want treatment he was ambivalent. He would like to have a tissue biopsy. Our thought process was to get her sodium levels at an acceptable level and possibly have her seen as an outpatient with urology. My only concern is that I believe this mass may be driving the continued hyponatremia. Reviewed the records from the patient's last admission at [facility] they note that she has a history of chronic hyponatremia with a baseline sodium that hovers between 128-130. Continue current plan and therapy and be vigilant to follow neurological examination and sodium levels. Multiple examinations and fluid adjustments were made throughout the last 24 hours. 05.22.19: Patient did show initial improvement with improvement in her sodium today. I am most concerned about the rapid increase and have begun DDAVP Therapy. In this mode of clamp therapy taking control of urine output with a rapidly rising sodium is in the patient patient's best interest. We will also give D5 to reduce the sodium. The plan is to only increase by 0.5 mmol every 2 hours with certainly no excess more than 8 to 12 mmol in 24 hours. I have asked nursing to continue to be vigilant in checking sodium levels and neurologic checks. On repeat examination patient does not appear to have any neurological side effects but will be prudent to continue to follow this up. We did place a PICC line because of the concerned that labs were being drawn above where the IV fluids were being given. 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 Her symptoms are best explained by this. We will be vigilant to watch for osmotic demyelination as well. I had a discussion with the family regarding her overall deconditioned state and her wishes should a cardiac or respiratory event occur. Even though I do not perceive that this is going to happen given her age and morbidities this is a possibility. She did have hematuria and we held her Lovenox. I will start heparin therapy and concern for DVT. We will watch for recurrent hematuria. The care of a critically ill patient is dynamic. This note represents a static time-frame in the admission process. Orders and treatments may be given simultaneously and urgently, and time is not telemarketing representative of the treatment process. This patient requires Critical Care secondary to life-threatening organ or limb dysfunction. Without the need for Critical Care services, the patient is at risk for increased mortality and morbidity. MPOA: SonGee. Have communicated this with family
--- NOTE | 2019-05-24 13:11 | PDOC PROGRESS REPORT ---
Subjective Progress Note for:: 05/22/19 Subjective:: 05.22.2019: Patient continues to have persistent hyponatremia despite sodium chloride supplementation. She still endorses weakness and malaise and does not feel well. She has mild nausea. There has been no seizures no neurological focal deficits other than weakness. He has noted to have a positive urine and we are awaiting microbiology to determine whether there is an active infection. Does not show any signs of sepsis nor has had any hemodynamic instability. Because of her persistent hyponatremia and weakness a PICC line was placed and patient was started on hypertonic saline at low dose. In approximately 4 to 5 hours time her sodium levels went from 109-110 to 117. The hypertonic saline was going at 20 cc/h. This appeared to induce a reactive diuresis. Given the sharp increase in sodium patient was given DDAVP and a D5 W bolus at 250 cc with a continuous rate of 10 mL's per hour. Multiple examinations were done to assure neurological stability. Patient continues to endorse improvement or weakness. There is no evidence to support any pontine teen or cranial nerve deficits. 05.21.2019: Patient was admitted yesterday for hyponatremia. She has been on normal saline with minimal increase in sodium. She describes and endorses general weakness and malaise. Later in the day she had discomfort in her back and shoulders from lying in bed. Met with her son to discuss the possibility of a bladder mass. We were concerned about this because nursing reported hematuria after E[place] was placed. They have been irrigating. CT scan shows a significant enlargement in the bladder mucosa consistent with possible mass. Patient may have been taking hydrochlorothiazide but have been unable to confirm this.. Urine sodium is high which would be consistent with diuretic use. She endorses a dry mouth. She has no headache and has had no neurological changes. Hemodynamics have been non-labile Reason For Visit: HYPONATREMIA,DEHYDRATION Physical Exam Vital Signs: Temp Pulse Resp BP Pulse Ox 96.8 F L 98 27 H 138/67 H 97 05/22/19 18:01 05/22/19 18:00 05/22/19 18:01 05/22/19 18:01 05/22/19 18:01 Intake & Output 05/21/19 05/22/19 05/23/19 06:59 06:59 06:59 Intake Total 1999 1630 1230 Output Total 0 1825 540 Balance -70 -195 690 Weight 79.5 kg Physical Exam: Weak nontoxic but ill appearing 83-year-old female no acute distress General appearance: PRESENT: no acute distress, cooperative, hard of hearing, obese Head exam: PRESENT: atraumatic, normocephalic Eye exam: PRESENT: conjunctiva pink, EOMI, PERRLA. ABSENT: conjunctival injection, nystagmus, periorbital swelling, scleral icterus Mouth exam: PRESENT: moist, neck supple, tongue midline Neck exam: ABSENT: carotid bruit, JVD, lymphadenopathy, meningismus, thyromega ly, tracheal deviation Respiratory exam: PRESENT: clear to auscultation ga, unlabored. ABSENT: accessory muscle use Cardiovascular exam: PRESENT: RRR, +S1, +S2 Vascular exam: PRESENT: normal capillary refill GI/Abdominal exam: PRESENT: normal bowel sounds, soft. ABSENT: ascites, distended, firm, guarding, mass, Moran's sign, rebound, rigid, tenderness Rectal exam: PRESENT: deferred Gentrourinary exam: PRESENT: indwelling catheter Additional comments: No blood in ely. Extremities exam: PRESENT: pedal edema Musculoskeletal exam: PRESENT: normal inspection. ABSENT: deformity, dislocation, tenderness Neurological exam: PRESENT: awake, oriented to person, oriented to place, oriented to situation, CN II-XII grossly intact. ABSENT: motor sensory deficit, aphasic Additional comments: GCS of 15. No focal deficits. No gross cranial nerve deficits. Patient's voice is stronger. Psychiatric exam: ABSENT: agitated Focused psych exam: ABSENT: catatonic, pressured speech, psychomotor agitation, restlessness Skin exam: PRESENT: intact, normal color. ABSENT: cyanosis, erythema, jaundice, mottled, pallor, petechiae, urticaria, vesicles Results Laboratory Results: 05/22/19 04:18 05/22/19 18:10 05/21/19 05/21/19 05/22/19 22:00 22:50 04:18 WBC 11.1 H RBC 3.70 L Hgb 11.7 L Hct 33.7 L MCV 91 MCH 31.6 MCHC 34.7 RDW 13.7 Plt Count 483 H Seg Neutrophils % Not Reportable Sodium 110.2 L* Potassium 4.9 Chloride 79 L Carbon Dioxide 18 L Anion Gap 13 BUN 3 L Creatinine 0.28 L Est GFR ( Amer) > 60 Glucose 101 Serum Osmolality Lactic Acid Calcium 8.1 L Phosphorus Magnesium Total Bilirubin AST Alkaline Phosphatase Ammonia Total Protein Albumin Urine Color YELLOW Urine Appearance CLOUDY Urine pH 7.0 Ur Specific [place] 1.012 Urine Protein 30 H Urine Glucose (UA) NEGATIVE Urine Ketones 80 H Urine Blood LARGE H Urine Nitrite POSITIVE H Ur Leukocyte Esterase LARGE H Urine WBC (Auto) 85 Urine RBC (Auto) >182 Urine Osmolality 05/22/19 05/22/19 05/22/19 04:18 06:56 06:56 WBC RBC Hgb Hct MCV MCH MCHC RDW Plt Count Seg Neutrophils % Sodium Potassium Chloride Carbon Dioxide Anion Gap BUN Creatinine Est GFR ( Amer) Glucose Serum Osmolality Lactic Acid 1.4 Calcium Phosphorus Magnesium Total Bilirubin AST Alkaline Phosphatase Ammonia Total Protein Albumin Urine Color Urine Appearance Urine pH Ur Specific [place] 1.010 Urine Protein Urine Glucose (UA) Urine Ketones Urine Blood Urine Nitrite Ur Leukocyte Esterase Urine WBC (Auto) Urine RBC (Auto) Urine Osmolality 423 05/22/19 05/22/19 05/22/19 07:05 08:05 08:05 WBC RBC Hgb Hct MCV MCH MCHC RDW Plt Count Seg Neutrophils % Sodium 110.5 L* Potassium 4.5 Chloride 79 L Carbon Dioxide 18 L Anion Gap 14 BUN 4 L Creatinine 0.25 L Est GFR ( Amer) > 60 Glucose 91 Serum Osmolality 222 L Lactic Acid Calcium 8.4 Phosphorus 2.8 Magnesium 1.4 L Total Bilirubin 0.8 AST 35 Alkaline Phosphatase 76 Ammonia < 8.7 L Total Protein 6.2 L Albumin 3.1 L Urine Color Urine Appearance Urine pH Ur Specific [place] Urine Protein Urine Glucose (UA) Urine Ketones Urine Blood Urine Nitrite Ur Leukocyte Esterase Urine WBC (Auto) Urine RBC (Auto) Urine Osmolality 05/22/19 05/22/19 14:21 18:10 WBC RBC Hgb Hct MCV MCH MCHC RDW Plt Count Seg Neutrophils % Sodium 109.3 L* 117.8 L* Potassium 4.0 3.4 L Chloride 78 L 87 L Carbon Dioxide 18 L 20 L Anion Gap 13 11 BUN 3 L < 2 L Creatinine 0.25 L 0.21 L Est GFR ( Amer) > 60 > 60 Glucose 105 101 Serum Osmolality Lactic Acid Calcium 8.3 L 7.4 L Phosphorus Magnesium Total Bilirubin AST Alkaline Phosphatase Ammonia Total Protein Albumin Urine Color Urine Appearance Urine pH Ur Specific [place] Urine Protein Urine Glucose (UA) Urine Ketones Urine Blood Urine Nitrite Ur Leukocyte Esterase Urine WBC (Auto) Urine RBC (Auto) Urine Osmolality 05/20/19 05/20/19 14:00 15:30 Troponin I Cancelled < 0.012 Impressions: Abdomen Ultrasound 05/22/19 00:00 IMPRESSION: Limited abdominal ultrasound with nonvisualization of the pancreas, aorta, IVC, left kidney, and spleen and limited visualization of the hepatic vasculature and urinary bladder. The echotexture of the liver is heterogeneous and hyperechoic; these findings could relate to hepatic steatosis. The gallbladder wall is normal in thickness and there are no other ancillary findings to suggest an acute cholecystitis. There is no right-sided hydronephrosis or ascites. Guidance Fluoroscopy 05/22/19 00:00 IMPRESSION: Successful placement of a 5 Burmese dual lumen PICC via the left brachial vein utilizing fluoroscopic and sonographic guidance. Interventional Vascular Procedure 05/22/19 00:00 IMPRESSION: Successful placement of a 5 Burmese dual lumen PICC via the left brachial vein utilizing fluoroscopic and sonographic guidance. PICC Line Insertion 05/22/19 00:00 IMPRESSION: Successful placement of a 5 Burmese dual lumen PICC via the left brachial vein utilizing fluoroscopic and sonographic guidance. Chest X-Ray 05/22/19 06:00 IMPRESSION: Stable pleural and parenchymal opacities that obscure the contours of the hemidiaphragms and blunt the costophrenic sulci - differential considerations include a combination of pleural fluid, atelectasis and/or consolidation. Assessment & Plan - Diagnosis (1) Hyponatremia Is this a current diagnosis for this admission?: Yes (2) Hypo-osmolality and hyponatremia Is this a current diagnosis for this admission?: Yes (3) Fatigue Qualifiers: Fatigue type: chronic, unspecified Qualified Code(s): R53.82 - Chronic fatigue, unspecified Is this a current diagnosis for this admission?: Yes (4) Hyperkalemia Is this a current diagnosis for this admission?: Yes (5) Physical deconditioning Is this a current diagnosis for this admission?: Yes (6) Chronic pain disorder Is this a current diagnosis for this admission?: Yes (7) Bladder mass Is this a current diagnosis for this admission?: Yes - Time Time Spent with patient: 35 or more minutes Total Critical Time (Minutes): 50 Medications reviewed and adjusted accordingly: Yes Anticipated discharge: Acute Rehab Within: within 72 hours - Inpatient Certification Based on my medical assessment, after consideration of the patient's comorbidities, presenting symptoms, or acuity I expect that the services needed warrant INPATIENT care.: Yes I certify that my determination is in accordance with my understanding of Medicare's requirements for reasonable and necessary INPATIENT services [42 CFR 412.3e].: Yes Medical Necessity: Significant Comorbidiites Make Outpatient Treatment Too R isky, Need Close Monitoring Due to Risk of Patient Decompensation, Need For IV Fluids, Need For Continuous Telemetry Monitoring, Need for Neurological Checks, Risk of Complication if Not Cared For in Hospital Post Hospital Care: D/C Family Program Specialist Documentation - Plan Summary Plan Summary: Patient did show initial improvement with improvement in her sodium today. I am most concerned about the rapid increase and have begun DDAVP Therapy. In this mode of clamp therapy taking control of urine output with a rapidly rising sodium is in the patient patient's best interest. We will also give D5 to reduce the sodium. The plan is to only increase by 0.5 mmol every 2 hours with certainly no excess more than 8 to 12 mmol in 24 hours. I have asked nursing to continue to be vigilant in checking sodium levels and neurologic checks. On re peat examination patient does not appear to have any neurological side effects but will be prudent to continue to follow this up. We did place a PICC line because of the concerned that labs were being drawn above where the IV fluids were being given. 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 Her symptoms are best explained by this. We will be vigilant to watch for osmotic demyelination as well. I had a discussion with the family regarding her overall deconditioned state and her wishes should a cardiac or respiratory event occur. Even though I do not perceive that this is going to happen given her age and morbidities this is a possibility. She did have hematuria and we held her Lovenox. I will start heparin chemoprophylaxis . She is at high risk for DVT/VTE. We will watch for recurrent hematuria.
[2019-05-24] MEDS ORDERED: GABAPENTIN 100 MG CAPSULE PO SCH (14:00)
[2019-05-24] MEDS ORDERED: VANCOMYCIN HCL 1,000 MG in DEXTROSE 5%-WATER 250 ML IV SCH (14:00)
[2019-05-24] MEDS ORDERED: ONDANSETRON HCL INJ/PF 4 MG/2 ML SDV IV PRN (15:00)
[2019-05-24 16:07] LABS: ANION GAP 7 (5-19); BLOOD UREA NITROGEN 9 mg/dL (7-20); CALCIUM 8.9 mg/dL (8.4-10.2); CARBON DIOXIDE 26 mmol/L (22-30); CHLORIDE 84 mmol/L (98-107); GLUCOSE 173 mg/dL (75-110); POTASSIUM 3.8 mmol/L (3.6-5.0)
--- NOTE | 2019-05-24 17:01 | PDOC TRANSFER SUMMARY ---
General Admission Date/PCP: 05/20/19 16:52 SID BURGESS MD Admission Date: 05/20/19 Accepting Facility: [facility] Accepting Physician: Hospitalist Service Resuscitation Status: Full Code - Transfer Diagnosis (1) Hyponatremia Is this a current diagnosis for this admission?: Yes (2) Hypo-osmolality and hyponatremia Is this a current diagnosis for this admission?: Yes (3) Fatigue Is this a current diagnosis for this admission?: Yes (4) Hyperkalemia Is this a current diagnosis for this admission?: Yes (5) Physical deconditioning Is this a current diagnosis for this admission?: Yes (6) Chronic pain disorder Is this a current diagnosis for this admission?: Yes (7) Bladder mass Is this a current diagnosis for this admission?: Yes (8) Hematuria due to cystitis Is this a current diagnosis for this admission?: Yes (9) Complicated urinary tract infection Is this a current diagnosis for this admission?: Yes - Transfer Medications Home Medications: Acetaminophen [Tylenol Soln 325 mg/10.15 ml Udcup] 31.2 ml PO Q8HP PRN 05/21/19 Calcium Carbonate [Calcium] 500 mg PO Q12 05/21/19 Cholecalciferol (Vitamin D3) [Vitamin D3 400 Unit Tablet] 400 unit PO QAM 05/21/19 Docusate Sodium [Colace Udc 100 mg/10 ml Oral Soln] 10 ml PO BID 05/21/19 Famotidine [Pepcid 40 mg Tablet] 40 mg PO BID 05/21/19 Fluticasone Propionate [Flonase Nasal [place] 50 Mcg/[place] 16 gm] 1 spray NASL DAILY 05/21/19 Gabapentin [Neurontin 100 mg Capsule] 100 mg PO TID 05/21/19 Gabapentin [Neurontin 300 mg Capsule] 300 mg PO [id number] 05/21/19 Lidocaine [Aspercreme] 1 patch TD QAM 05/21/19 Melatonin 10 mg PO QHS 05/21/19 Methocarbamol [Robaxin 500 mg Tablet] 500 mg PO [id number] 05/21/19 Metoprolol Tartrate [Lopressor 25 mg Tablet] 25 mg PO BID 05/21/19 Miscellaneous Medication [Happy [place] Cream] 1 applic TOP .DIAPERCHANGE 05/21/19 Ondansetron HCl [Zofran 4 mg Tablet] 4 mg PO Q6HP PRN 05/21/19 Polyethylene Glycol 3350 [Miralax Powder 17 gm/Packet] 17 gm PO QAM 05/21/19 Sucralfate [Carafate 1 gm Tablet] 1 gm PO BID 05/21/19 Transfer Medications: Current Medications Acetaminophen (Tylenol 325 Mg Tablet) 650 mg PO Q4HP PRN PRN Reason: FOR HEADACHE OR PAIN Stop: 06/19/19 17:03 Last Admin: 05/21/19 19:57 Dose: 650 mg Documented by: Famotidine (Pepcid 20 Mg Tablet) 20 mg PO Q12 [facility] Stop: 06/23/19 12:14 Last Admin: 05/24/19 12:48 Dose: 20 mg Documented by: Gabapentin (Neurontin 100 Mg Capsule) 100 mg PO Q8 [facility] Stop: 06/23/19 13:59 Heparin Sodium (Porcine) (Heparin Flush 10 Unit/Ml 5 Ml Disp.Syrg) 30 unit IV Q12 [facility] Stop: 06/21/19 21:59 Last Admin: 05/24/19 11:06 Dose: 30 unit Documented by: Heparin Sodium (Porcine) (Heparin Inj 5,000 Units/Ml 1 Ml Vial) 5,000 unit SUBCUT Q8 [facility] Stop: 06/21/19 21:59 Last Admin: 05/24/19 05:50 Dose: 5,000 unit Documented by: Dextrose (D5w 1000 Ml Iv Soln) 1,000 mls @ 30 mls/hr IV CONTINUOUS PRN PRN Reason: THIS MED IS NOT "PRN" Stop: 06/23/19 12:02 Cefepime HCl (Maxipime Rtu 1 Gm/D5w 50 Ml Premix Bag) 1 gm in 50 mls @ 100 mls/hr IV Q12 [facility] Stop: 05/31/19 12:29 Last Admin: 05/24/19 12:48 Dose: 100 mls/hr, 100 mls/hr Documented by: Vancomycin HCl 1,000 mg/ (Dextrose) 250 mls @ 166.667 mls/hr IV Q12 [facility] Stop: 05/31/19 13:59 Lactulose (Cephulac Syrup 20 Gm/30 Ml Udcup) 20 gm PO BID [facility] Stop: 06/22/19 10:59 Last Admin: 05/24/19 11:07 Dose: 20 gm Documented by: Melatonin (Melatonin 5 Mg Tablet) 10 mg PO QHS [facility] Stop: 06/20/19 21:59 Last Admin: 05/23/19 23:12 Dose: 10 mg Documented by: Methocarbamol (Robaxin 500 Mg Tablet) 500 mg PO QID [facility] Stop: 06/20/19 21:59 Last Admin: 05/24/19 11:07 Dose: 500 mg Documented by: Metoprolol Tartrate (Lopressor 25 Mg Tablet) 25 mg PO Q12 [facility] Stop: 06/23/19 12:01 Last Admin: 05/24/19 12:44 Dose: 25 mg Documented by: Ondansetron HCl (Zofran Inj/Pf 4 Mg/2 Ml Sdv) 4 mg IV Q4HP PRN PRN Reason: FOR NAUSEA/VOMITING Stop: 06/19/19 17:03 Last Admin: 05/23/19 17:52 Dose: 4 mg Documented by: Polyethylene Glycol (Miralax Powder 17 Gm/Packet) 17 gm PO DAILY [facility] Stop: 06/22/19 10:59 Last Admin: 05/24/19 11:07 Dose: 17 gm Documented by: Senna/Docusate Sodium (Senna Plus Tablet) 1 each PO BIDP PRN PRN Reason: UNRESOLVED CONSTIPATION Stop: 06/22/19 09:59 Sodium Chloride (Saline Flush 2.5 Ml Monoject Prefil Syrin) 2.5 ml IV Q8 [facility] Stop: 06/19/19 21:59 Last Admin: 05/24/19 05:44 Dose: Not Given Documented by: Sodium Chloride (Nacl 0.9% Inj/Pf 10 Ml Sdv) 10 ml IV Q12 [facility] Stop: 06/21/19 21:59 Last Admin: 05/24/19 11:07 Dose: 10 ml Documented by: Sodium Chloride (Nacl 0.9% Inj/Pf 10 Ml Sdv) 10 ml IV .AFTER EACH USE PRN Stop: 06/21/19 15:59 Last Admin: 05/22/19 22:08 Dose: 10 ml Documented by: Sodium Chloride (Saline Flush 2.5 Ml Monoject Prefil Syrin) 2.5 ml IV Q8 [facility] Stop: 06/23/19 13:59 Sucralfate (Carafate 1 Gm Tablet) 1 gm PO Q6 [facility] Stop: 06/23/19 11:59 Last Admin: 05/24/19 12:44 Dose: 1 gm Documented by: - Allergies Allergies/Adverse Reactions: Sulfa (Sulfonamide Antibiotics) Allergy (Verified 11/14/11 10:28) - Diet/Activity Discharge Diet: Other (Comments) - mechanical soft Discharge Activity: Bedrest Hospital Course Hospital Course: Daily Plans in ICU: 05.24.19 : She had been responding to conservative therapy with 3% and DDAVP clamp. She has had a sudden incremental rise sodium to 118. She had a slow rise to 113 up until midnight last night with an increase in urine output we have a recrudescence of overcorrection despite very close conservative management. She has remained asymptomatic and shows no signs of pontine demise demyelination. She does have weakness which is related to chronic illness and recent multiple hospital admissions. She has not had any hematuria on subc utaneous DVT chemical prophylaxis. She is taking some oral intake and and much better than earlier in her admission. She has had some tachycardia without any hypotension this is most likely related to discontinuation of her beta-damaso. I have restarted this. She also has chronic pain and has been on Neurontin. I have restarted this as well at 100 mg 3 times daily low dose. The possibility of this contributing to SIADH is of diagnostic consideration. 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 Our hope was to improve her situation and see outpatient urology for biopsy however I fear that the mass is driving the recurrent hyponatremia and the difficulty with correction. In concerned I reached out to [facility] for [facility] to evaluate the patient for possible transfer specifically to be seen by urologist for tissue biopsy and also further advanced oncology care should the tumor be malignant. I have also sent aldosterone and renin levels on the 3%. We will continue to provide vigilant BMP monitoring. I have reintroduced a DDAVP "clamp" with 2 mcg IV [address] her on D5W. Likely we will continue to monitor her neurological status. The patient has been accepted at [facility] in [place]. Await bed placement. 05.23.19 Patient has had acceptable slow but continuous improvement in her sodium. The DDAVP clamp appears to be effective and working well. We will increase her 3% sodium based on BMP results. We will continue constant neurological monitoring. Patient has no neurological deficits. She did complain of a headache earlier but this appears to be all related to her neck muscle and improved with just m otion. Have chronic pain especially in her shoulders. I had a long discussion with the son regarding the bladder mass. This appears to be causing the hyponatremia. I asked the son if we considered sending her for a procedure to make a diagnosis would he want treatment he was ambivalent. He would like to have a tissue biopsy. Our thought process was to get her sodium levels at an acceptable level and possibly have her seen as an outpatient with urology. My only concern is that I believe this mass may be driving the continued hyponatremia. Reviewed the records from the patient's last admission at [facility] they note that she has a history of chronic hyponatremia with a baseline sodium that hovers between 128-130. Continue current plan and therapy and be vigilant to follow neurological examination and sodium levels. Multiple examinations and fluid adjustments were made throughout the last 24 hours. 05.22.19: Patient did show initial improvement with improvement in her sodium today. I am most concerned about the rapid increase and have begun DDAVP Therapy. In this mode of clamp therapy taking control of urine output with a rapidly rising sodium is in the patient patient's best interest. We will also give D5 to reduce the sodium. The plan is to only increase by 0.5 mmol every 2 hours with certainly no excess more than 8 to 12 mmol in 24 hours. I have asked nursing to continue to be vigilant in checking sodium levels and neurologic checks. On repeat examination patient does not appear to have any neurological side effects but will be prudent to continue to follow this up. We did place a PICC line because of the concerned that labs were being drawn above where the IV fluids were being given. 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 Her symptoms are best explained by this. We will be vigilant to watch for osmotic demyelination as well. I had a discussion with the family regarding her overall deconditioned state and her wishes should a cardiac or respiratory event occur. Even though I do not perceive that this is going to happen given her age and morbidities this is a possibility. She did have hematuria and we held her Lovenox. I will start heparin therapy and concern for DVT. We will watch for recurrent hematuria. The care of a critically ill patient is dynamic. This note represents a static time-frame in the admission process. Orders and treatments may be given simultaneously and urgently, and time is not international account representative of the treatment process. This patient requires Critical Care secondary to life-threatening organ or limb dysfunction. Without the need for Critical Care services, the patient is at risk for increased mortality and morbidity. MPOA: Son, Gee. Have communicated this with family Daily events in ICU 05.24.19: Remains asymptomatic. Her sodium levels were rising acceptably however this morning's sodium was 116. A repeat sodium was 118. Despite this she has no evidence of pontine dysfunction. She is taking occasional oral intake. She has been slightly tachycardic without and her beta-damaso has been restarted. There has been no hypotension. She did have a slight increase in her urine output in association with the increase in sodium. She had her 3% saline increased last night because of slow improvement. There is been no chest pain no shortness of breath. She she does still endorse weakness. No fevers no abdominal pain no further hematuria on heparin. 05.23.19: Patient as noted below abrupt rise in her sodium. She was started on DDAVP clamp protocol. Sodiums have returned to their baseline level and have increased in an acceptable pattern on 3% saline. Spite these changes she has had no neurological deficits. She still complains of weakness. No chest pain no shortness of breath. She is starting to take in a dysphagia type diet. 05.22.2019: Patient continues to have persistent hyponatremia despite sodium chloride supplementation. She still endorses weakness and malaise and does not feel well. She has mild nausea. There has been no seizures no neurological focal deficits other than weakness. He has noted to have a positive urine and we are awaiting microbiology to determine whether there is an active infection. Does not show any signs of sepsis nor has had any hemodynamic instability. Because of her persistent hyponatremia and weakness a PICC line was placed and patient was started on hypertonic saline at low dose. In approximately 4 to 5 hours time her sodium levels went from 109-110 to 117. The hypertonic saline was going at 20 cc/h. This appeared to induce a reactive diuresis. Given the sharp increase in sodium patient was given DDAVP and a D5 W bolus at 250 cc with a continuous rate of 10 mL's per hour. Multiple examinations were done to assure neurological stability. Patient continues to endorse improvement or weakness. There is no evidence to support any pontine or cranial nerve defic its. 05.21.2019: Patient was admitted yesterday for hyponatremia. She has been on normal saline with minimal increase in sodium. She describes and endorses general weakness and malaise. Later in the day she had discomfort in her back and shoulders from lying in bed. Met with her son to discuss the possibility of a bladder mass. We were concerned about this because nursing reported hematuria after Gill was placed. They have been irrigating. CT scan shows a significant enlargement in the bladder mucosa consistent with possible mass. Patient may have been taking hydrochlorothiazide but have been unable to confirm this.. Urine sodium is high which would be consistent with diuretic use. She endorses a dry mouth. She has no headache and has had no neurological changes. Hemodynamics have been non-labile Physical Exam Vital Signs: Temp Pulse Resp BP Pulse Ox 97.5 F 107 H 18 121/61 99 05/24/19 12:00 05/24/19 12:00 05/24/19 12:00 05/24/19 12:00 05/24/19 12:00 Intake & Output 05/23/19 05/24/19 05/25/19 06:59 06:59 06:59 Intake Total 1724 180 250 Output Total 1140 820 210 Balance 584 -640 40 Weight 81.6 kg Please see exam from today's progress note General appearance: PRESENT: no acute distress Results Laboratory Results: 05/22/19 04:18 05/24/19 10:50 05/23/19 05/23/19 05/23/19 12:33 14:47 16:23 Sodium 110.2 L* 110.0 L* 109.9 L* Potassium 4.2 4.4 4.3 Chloride 78 L 79 L 79 L Carbon Dioxide 21 L 21 L 21 L Anion Gap 11 10 10 BUN 5 L 5 L 5 L Creatinine 0.29 L 0.29 L 0.32 L Est GFR ( Amer) > 60 > 60 > 60 Glucose 116 H 106 105 Calcium 8.4 8.5 8.4 05/23/19 05/23/19 05/24/19 18:39 23:24 04:05 Sodium 110.4 L* 113.1 L* 116.5 L* Potassium 4.2 4.1 4.0 Chloride 80 L 81 L 84 L Carbon Dioxide 21 L 26 25 Anion Gap 9 6 8 BUN 5 L 6 L 6 L Creatinine 0.30 L 0.33 L 0.34 L Est GFR ( Amer) > 60 > 60 > 60 Glucose 134 H 111 H 111 H Calcium 8.5 8.6 8.7 05/24/19 10:50 Sodium 118.0 L* Potassium 3.8 Chloride 85 L Carbon Dioxide 25 Anion Gap 8 BUN 7 Creatinine 0.34 L Est GFR ( Amer) > 60 Glucose 134 H Calcium 9.0 05/20/19 05/20/19 14:00 15:30 Troponin I Cancelled < 0.012 Impressions: Abdomen Ultrasound 05/22/19 00:00 IMPRESSION: Limited abdominal ultrasound with nonvisualization of the pancreas, aorta, IVC, left kidney, and spleen and limited visualization of the hepatic vasculature and urinary bladder. The echotexture of the liver is heterogeneous and hyperechoic; these findings could relate to hepatic steatosis. The gallbladder wall is normal in thickness and there are no other ancillary findings to suggest an acute cholecystitis. There is no right-sided hydronephrosis or ascites. Guidance Fluoroscopy 05/22/19 00:00 IMPRESSION: Successful placement of a 5 [place] dual lumen PICC via the left brachial vein utilizing fluoroscopic and sonographic guidance. Interventional Vascular Procedure 05/22/19 00:00 IMPRESSION: Successful placement of a 5 [place] dual lumen PICC via the left brachial vein utilizing fluoroscopic and sonographic guidance. PICC Line Insertion 05/22/19 00:00 IMPRESSION: Successful placement of a 5 [place] dual lumen PICC via the left brachial vein utilizing fluoroscopic and sonographic guidance. Chest X-Ray 05/22/19 06:00 IMPRESSION: Stable pleural and parenchymal opacities that obscure the contours of the hemidiaphragms and blunt the costophrenic sulci - differential considerations include a combination of pleural fluid, atelectasis and/or consolidation. Status: Image reviewed by me Plan Discharge Plan: I have spoken with the hospitalist service advised and in [facility]. They have agreed to excepting the patient to be seen by urology and nephrology for recalcitrant hyponatremia. We have let them know that if they choose to want to send the patient back after the perfunctory studies have been done and a clear concise plan has been generated we would be happy to accept her either to our ICU or hospitalist service depending on her situation. I did discuss this with the patient and let her know about our concerns for the bladder tumor and I discussed with her son Gee who is aware. We will continue to follow and monitor her sodium and neurological status. She currently is on D5W at 30 ml/hr and received 2 mcg IV DDAVP Time Spent: Greater than 30 Minutes
[2019-05-24 20:05] VITALS: BP 103/65
== END 2019-05-24 20:25 | disposition short-term general hospital (02) | DRG 641 ==
LOC: ER 12:44 → EH 16:52 → ICU 20:33
PROVIDERS: ADMIT Internal Medicine; ATTEND Internal Medicine
PROC: 02HV33Z Insertion of Infusion Device into Superior Vena Cava, Percutaneous Approach (ICD-10-PCS; principal; 2019-05-22)
PROC: B518ZZA Fluoroscopy of Superior Vena Cava, Guidance (ICD-10-PCS; 2019-05-22)
PROC: B548ZZA Ultrasonography of Superior Vena Cava, Guidance (ICD-10-PCS; 2019-05-22)
DX: E87.1 Hypo-osmolality and hyponatremia (principal); E86.0 Dehydration; E87.5 Hyperkalemia; G89.29 Other chronic pain; N30.91 Cystitis, unspecified with hematuria; I10 Essential (primary) hypertension; E78.5 Hyperlipidemia, unspecified; E66.01 Morbid (severe) obesity due to excess calories; Z79.899 Other long term (current) drug therapy; Z88.2 Allergy status to sulfonamides
CPT/HCPCS: 36415; 36569; 71045; 76700; 76937; 77001; 80048; 80053; 80076; 81001; 81002; 82088; 82140; 82530; 82533; 82570; 82962; 83605; 83690; 83735; 83880; 83930; 83935; 84100; 84133; 84244; 84300; 84443; 84484; 85025; 85027; 85610; 85730; 87086; 87088; 87186; 93005; 93010; 96361; 96374; 99291; C1769; J0360; J0692; J0696; J1642; J1644; J2405; J2597; J3370; J3475; J3480; J3490; J7030; J7050; J7060; S0164